=== PATIENT | male | born 1965 | race Caucasian/White ===

== ENCOUNTER → 2022-04-17 10:36 | Outpatient (BNVA) | payer MEDICAID, SELFPAY | PROVIDERS: Family Provider Family Medicine; PCP Family Medicine; Visit Provider Orthopaedic Surgery | DX: K21.9 Gastro-esophageal reflux disease without esophagitis; R10.13 Epigastric pain; K62.5 Hemorrhage of anus and rectum; K59.00 Constipation, unspecified; R13.10 Dysphagia, unspecified; Z86.010 Personal history of colon polyps; M47.12 Other spondylosis with myelopathy, cervical region | CPT/HCPCS: 72050; 72110; 99203; 99204 ==

== ENCOUNTER 2022-05-01 09:04 | Day surgery (SDC) | payer MEDICAID, SELFPAY ==
[2022-04-29 12:56] VITALS: BMI 27.4
[2022-05-01 09:42] VITALS: BP 124/89; PULSE 103; RESP 16; TEMP 36.7; O2SAT 95
[2022-05-01] MEDS: sodium chloride 0.9% 1,000 ML 30 ML IV (09:55)
[2022-05-01 10:22] LABS: Glucose Point of Care 98 mg/dL (70-110)
--- NOTE | 2022-05-01 10:30 | ANES.PREANE2 ---
Pre-Anesthetic Assessment Height/Weight: Height 1.68 m Weight 77.111 kg Temp Pulse Resp BP Pulse Ox O2 Del Method 98.0 F 103 H 16 124/89 95 05/01/22 09:42 05/01/22 09:42 05/01/22 09:42 05/01/22 09:42 05/01/22 09:42 05/01/22 09:42 Preop Diagnosis: reflux, conctipation, abd pain Operation Date: 05/01/22 10:45 Proposed Procedures p [id number] egd/colon,K95.00,R10.9,K21.9(Not Applicable) - Olvin Duvall DO s Colonoscopy(Not Applicable) - Olvin Duvall DO Was Beta Kenyon taken within 24 hours: N/A Last intake: Intake Last Liquid Date 04/30/22 Last Liquid Time 22:00 Last Solid Date 04/29/22 Last Solid Time 17:00 Social Alcohol and No tobacco Exam alert, oriented x 3, clear to auscultation bilaterally and regular rate & rhythm Airway Submandibular: within normal limits Cervical ROM: within normal limits Mallampati: Class II Dentition: full History/ROS No significant history except as noted and No significant complaints Pulmonary Chronic Obstructive Pulmonary Disease, Sleep Apnea and Shortness of Breath CV/HEM Hypertension None reported Hepatic None reported GI Gastroesophageal Reflux Disease Metabolic Diabetes Mellitus Musc/skel Lower Back Pain and Osteoarthritis/DJD Neuropsych Transient Ischemic Attack Anesthetic Plan ASA status: 4 Anesthesia: Anesthesia Evaluation and MAC Risk of > 500 ml blood loss (7ml/kg in children): No Medications/Allergies Home Medications Medication Instructions Recorded Confirmed Last Taken Type albuterol sulfate 90 mcg/actuation 1 inh inhalation QID 04/17/22 04/29/22 04/30/22 History aerosol inhaler amlodipine 10 mg tablet 10 mg PO DAILY 04/17/22 04/29/22 04/30/22 History aspirin 81 mg tablet,delayed 81 mg PO DAILY 04/17/22 04/29/22 04/29/22 History release atorvastatin 40 mg tablet 40 mg PO DAILY 04/17/22 04/29/22 04/30/22 History azelastine 137 mcg (0.1 %) nasal 1 spray intranasal BID 04/17/22 04/29/22 04/30/22 History spray aerosol budesonide 160 mcg-glycopyr 9 2 inh inhalation BID 04/17/22 04/29/22 04/30/22 History mcg-formot 4.8 mcg/actuation HFA inhaler (Breztri Aerosphere) calcium citrate 200 mg (950 mg) 200 mg PO DAILY 04/17/22 04/29/22 04/30/22 History tablet carvedilol 3.125 mg tablet 3.125 mg PO BID 04/17/22 04/29/22 04/30/22 History clopidogrel 75 mg tablet 75 mg PO DAILY 04/17/22 04/29/22 04/26/22 History ergocalciferol (vitamin D2) 1,250 1,250 mcg PO DAILY 04/17/22 04/29/22 04/30/22 History mcg (50,000 unit) capsule esomeprazole magnesium 40 mg 40 mg PO DAILY 04/17/22 04/29/22 04/30/22 History capsule,delayed release fluticasone propionate 250 1 inh inhalation BID 04/17/22 04/29/22 04/30/22 History mcg/actuation blister powder for inhalation (Flovent Diskus) furosemide 20 mg tablet 20 mg PO DAILY 04/17/22 04/29/22 04/30/22 History glycopyrrolate 1 mg tablet 1 mg PO TID 04/17/22 04/29/22 04/30/22 History hydrocodone 10 mg-acetaminophen 1 tab PO Q4H PRN Pain 04/17/22 04/29/22 04/30/22 History 325 mg tablet insulin aspart U-100 100 unit/mL 5 unit SUBCUT QID 04/17/22 04/29/22 04/30/22 History subcutaneous cartridge lactulose 10 gram/15 mL (15 mL) 15 ml PO TID PRN constipation 1 04/17/22 04/29/22 Unknown Rx oral solution month #315 mL naloxone 4 mg/actuation nasal 4 mg intranasal Q2M PRN overdose 04/17/22 04/29/22 Unknown History spray (Narcan) ondansetron HCl 4 mg tablet 4 mg PO Q8H 04/17/22 04/29/22 04/30/22 History pen needle, diabetic 31 gauge x 04/17/22 04/17/22 Unknown History 3/16 (TechLITE Pen Needle) polyethylene glycol 3350 17 4 g PO DAILY 02/11/2904/29/22 04/30/22 History gram/dose oral powder potassium chloride 10 mEq 10 meq PO DAILY 04/17/22 04/29/22 04/30/22 History capsule,extended release testosterone cypionate 200 mg/mL 80 mg SUBCUT Q14D 04/17/22 04/29/22 04/22/22 History intramuscular oil zolpidem 10 mg tablet 10 mg PO DAILY 04/17/22 04/29/22 04/30/22 History prednisone 5 mg tablet 5 mg PO DAILY 04/29/22 04/29/22 04/30/22 History Allergies Allergy/AdvReac Type Severity Reaction Status Date / Time brexpiprazole Allergy Severe ADR-Halluci Verified 04/29/22 12:48 nating doxycycline Allergy Severe ALGY-Difficulty Verified 04/29/22 12:48 Breathing Iodinated Contrast Media Allergy Severe ALGY-Wheezi Verified 04/29/22 12:48 ng Sulfa (Sulfonamide Allergy Severe ALGY-Difficulty Verified 04/29/22 12:48 Antibiotics) Breathing varenicline Allergy Severe ADR-Halluci Verified 04/29/22 12:48 nating hydralazine Allergy Intermediate ADR-Photose Verified 04/29/22 12:48 nsitivity adhesive tape Allergy Mild ALGY-Rash Uncoded 04/29/22 12:48 Current Medications Generic Name Dose Route Start Last Admin Trade Name Freq PRN Reason Stop Dose Admin Sodium Chloride 1,000 mls @ 30 mls/hr 05/01/22 09:15 05/01/22 09:55 Sodium Chloride 0.9% IV 05/02/22 09:14 30 mls/hr .Q24H ROSE Administration PFSH Anesthesia Medical History (Updated 04/17/22 @ 13:35 by Olvin Duvall DO) Constipation Diabetic acidosis, type II GERD (gastroesophageal reflux disease) Surgical History Hx of colonoscopy with polypectomy total of 3. Last done 12/2018 at [facility] Hx of hernia repair x2 Inguinal Hx of knee surgery Right side and possibly left side Hx of kyphoplasty Family History Father Cancer Esephageal cancer Mother Cancer Sister Cancer kidney cancer Social History Smoking and tobacco status: former smoker Alcohol intake: current Alcohol intake frequency: holidays/special occasions only Data Anesthesia Cardiac Studies: No Data to Display
--- NOTE | 2022-05-01 10:56 | W.PM.OPSUD ---
Surgery/Procedure H&P Update DATE OF PROCEDURE: May 01, 2022 DATE H&P PERFORMED: 04/17/22 H&P UPDATE INFORMATION: I have reviewed H&P completed within last 30 days, I have examined patient prior to procedure and No changes to prior documentation PREOP DIAGNOSIS: reflux, conctipation, abd pain PLANNED PROCEDURE: Operation Date: 05/01/22 10:45 Proposed Procedures p [id number] egd/colon,K95.00,R10.9,K21.9(Not Applicable) - DO violet Quinn Colonoscopy(Not Applicable) - Olvin Duvall DO
[2022-05-01 11:29] VITALS: BP 117/87; PULSE 87; RESP 16; TEMP 36.1; O2SAT 97
--- NOTE | 2022-05-01 13:29 | ANE.PACU2 ---
Inpatient post-anesthesia follow up: Airway intact: Yes Vital signs: Temperature 97.0 F Pulse Rate 87 Respiratory Rate 16 Blood Pressure 117/87 Pulse Oximetry 97 Oxygen Delivery Me thod Room Air Oxygen Flow Rate Fraction of Inspir ed Oxygen Hydration adequate: Yes Nausea and vomiting: No Pain level: 1 Mental status: Baseline
== END 2022-05-01 12:00 | disposition home or self-care (01) ==
PROVIDERS: PCP Family Medicine; Visit Provider Surgery
PROC: 0DJ08ZZ Inspection of Upper Intestinal Tract, Via Natural or Artificial Opening Endoscopic (ICD-10-PCS; CPT 43235; principal; 2022-05-01 10:45)
PROC: 0DJD8ZZ Inspection of Lower Intestinal Tract, Via Natural or Artificial Opening Endoscopic (ICD-10-PCS; CPT 45378; 2022-05-01 10:45)
DX: K59.00 Constipation, unspecified (principal); R10.9 Unspecified abdominal pain; K21.9 Gastro-esophageal reflux disease without esophagitis; K52.9 Noninfective gastroenteritis and colitis, unspecified; K57.30 Diverticulosis of large intestine without perforation or abscess without bleeding; J44.9 Chronic obstructive pulmonary disease, unspecified; G47.30 Sleep apnea, unspecified; I10 Essential (primary) hypertension; E11.9 Type 2 diabetes mellitus without complications; Z86.73 Personal history of transient ischemic attack (TIA), and cerebral infarction without residual deficits; Z79.82 Long term (current) use of aspirin; Z79.4 Long term (current) use of insulin; Z87.891 Personal history of nicotine dependence
CPT/HCPCS: 36416; 43235; 45380; 82962; 88305; J2704; J7030

== ENCOUNTER 2022-05-12 13:11 | Outpatient (CLI) | payer MEDICAID, SELFPAY ==
--- NOTE | 2022-05-12 13:00 | MR_ITS ---
WS: [id number] MRI LUMBAR SPINE NONCONTRAST HISTORY: low back pain, hx of compression fractures COMPARISON: 04/17/2022. TECHNIQUE: Sagittal and axial multisequence imaging is submitted. Straightening of the normal lumbar lordosis. Anterior compression fracture L1 by 20% is chronic. L2 v ertebroplasty. No acute marrow signal abnormalities. Disc spaces are mildly and diffusely desiccated. Conus terminates normally at L1-2 disc level. L1-L2: Mild annular disc bulging. No stenosis or focal disc herniations. L2-L3: Normal. L3-L4: Mild bilateral facet joint arthritis. Very mild bilateral foraminal narrowing. L4-L5: Mild annular disc bulging with a small central to RIGHT paracentral disc protrusion. Disc prot rusion is contacting and slightly displacing the traversing RIGHT L5 nerve root. Mild bilateral facet joint arthritis and foraminal stenosis. L5-S1: Mild annular disc bulge with a central disc protrusion. Disc bulging extends into the foramina with LEFT annular fissure. Mild facet joint arthritis and ligamentum flavum hypertrophy. Moderate bi lateral foraminal stenosis, LEFT greater than RIGHT. Disc contacting the L5 nerve roots bilaterally. Paravertebral soft tissues are normal. MR/MR lumbar spine wo con* [id number] IMPRESSION: 1. Moderate bilateral foraminal stenosis at L5-S1. Most significant contact on the L5 nerve roots bilaterally. 2. L4-5 central to RIGHT paracentral disc protrusion contacts the traversing R IGHT L5 nerve root. 3. Mild bilateral foraminal stenosis at L4-5 and L3-4.
--- NOTE | 2022-05-12 14:30 | MR_ITS ---
WS: [id number] MRI CERVICAL SPINE NONCONTRAST HISTORY: neck pain, dizziness, balance issues, hx of compression fx COMPARISON: None available. Technique: Multiplanar, multisequence noncontrast imaging of the cervical spine. Straightening with RIGHT curvature of the cervical spine. Signal within the cervical cord is normal. Visualized posterior fossa is unremarkable. Disc spaces ar e markedly narrowed at C4-5 and C5-6. Otherwise mild degeneration. Craniocervical junction, C1 and C2 relationship, odontoid process and soft tissues are normal. C2-C3: Small central disc protrusion and mild osteophytic ridging. Mild LEFT foraminal stenosis. C3-C4: Diffuse annular disc bulging with osteophytic ridging and facet arthritis. Greater facet joint arthritis on the LEFT. Moderate central and bilateral foraminal stenosis. LEFT stenosis greater than RIGHT. C4-C5: 2 mm retrolisthesis of C4 encroaching upon the ventral thecal sac. Mild osteophytic ridging. N o disc protrusions. Moderate central and bilateral foraminal stenosis. C5-C6: Diffuse annular disc bulging and osteophytic ridging. Moderate to severe central and bilateral foraminal stenosis. Increase fluid within the LEFT facet joint. Facet joint cyst in the LEFT C6 supe rior articular facet. C6-C7: Mild osteophytic ridging with a central disc protrusion. Moderate facet joint arthritis. Moder ate central with bilateral foraminal stenosis. C7-T1: Mild foraminal narrowing due to osteophyte disease. T2-3: Small RIGHT paracentral disc protrusion. Paraspinal soft tissue are normal. MR/MR cervical spin wo con* [id number] IMPRESSION: 1. Moderate RIGHT scoliosis cervical spine with advanced degenerative disc dis ease. 2. Moderate central and bilateral foraminal stenosis at C3-4, LEFT greater barak n RIGHT due to disc, osteophyte and facet arthritis. 3. Moderate central and bilateral foraminal stenosis at C4-5 and C6-7. 4. Moderate to severe central stenosis at C5-6 and bilateral foraminal stenosi s. 5. No myelomalacia.
== END 2022-05-12 13:12 | disposition home or self-care (01) ==
LOC: RAD 13:11
PROVIDERS: PCP Family Medicine; Visit Provider Orthopaedic Surgery
DX: M50.321 Other cervical disc degeneration at C4-C5 level (principal); M48.02 Spinal stenosis, cervical region; M48.061 Spinal stenosis, lumbar region without neurogenic claudication; M48.07 Spinal stenosis, lumbosacral region
CPT/HCPCS: 72141; 72148

== ENCOUNTER → 2022-05-15 10:49 | Outpatient (BNVA) | payer MEDICAID, SELFPAY | PROVIDERS: PCP Family Medicine; Visit Provider Orthopaedic Surgery | DX: M47.12 Other spondylosis with myelopathy, cervical region (principal); M48.061 Spinal stenosis, lumbar region without neurogenic claudication | CPT/HCPCS: 99214 ==

== ENCOUNTER → 2022-05-21 16:48 | Outpatient (BNVA) | payer MEDICAID, SELFPAY | PROVIDERS: PCP Family Medicine; Visit Provider Surgery | DX: R10.9 Unspecified abdominal pain (principal); K62.5 Hemorrhage of anus and rectum | CPT/HCPCS: 99024; 99212 ==

== ENCOUNTER 2022-06-09 10:37 | Inpatient (IN) | payer MEDICAID, SELFPAY ==
[2022-06-02 08:36] VITALS: BMI 27.4
[2022-06-02 09:19] LABS: Basophils # 0.1 10^3/uL (0.0-0.1); Basophils % 0.5 %; Eosinophils # 0.2 10^3/uL (0.0-0.8); Eosinophils % 0.8 %; Hematocrit 44.4 % (42.0-52.0); Hemoglobin 12.4 g/dL (11.7-16.6); Lymphocytes # 4.9 10^3/uL (0.8-4.8); Lymphocytes % 19.3 %; Mean Corpuscular HGB Conc 27.9 g/dL (30.0-36.0); Mean Corpuscular Hemoglobin 20.9 pg (28.0-34.0); Mean Corpuscular Volume 74.9 fl (80-94); Monocytes # 1.5 10^3/uL (0.2-0.9); Neutrophils # 18.35 10^3/uL (1.8-7.7); Neutrophils % 72.3 %; Nucleated Red Blood Cells % 0 %; Platelet Count 478 10^3/cmm (130-400); Red Blood Count 5.93 10^6/uL (4.1-5.3); White Blood Count 25.4 10^3/uL (4.0-10.0)
--- NOTE | 2022-06-02 09:31 | P.ANESASSM_ITS ---
Pre-Anesthetic Assessment Height/Weight: Height 1.68 m Weight 77.111 kg Preop Diagnosis: reflux, conctipation, abd pain Operation Date: 06/09/22 07:00 Proposed Procedures p Anterior Cervical Discectomy & Fusion ACDF w/ Anterior Interbody Fusion w/ Instrumentation w/ Allograft:[id number](Not Applicable) - Romel Joseph DO Familial anesthetic complications: Patient has very thin skin and has trouble with skin tears and tape use. Was Beta Kenyon taken within 24 hours: N/A Was Clonidine taken within 24 hours: N/A Social No alcohol and No tobacco (h/o smoking) Exam alert, oriented x 3 and regular rate & rhythm Airway Submandibular: within normal limits Cervical ROM: Other (Very limited extension) Mallampati: Class III Dentition: chipped Pulmonary Chronic Obstructive Pulmonary Disease and Shortness of Breath Restricitve/autoimmune lung dz CV/HEM Hypertension GI Gastroesophageal Reflux Disease Metabolic Diabetes Mellitus and Hyperlipidemia Chronic steroid (asked to take 30mg PO preop) Musc/skel Lower Back Pain and Osteoarthritis/DJD Anesthetic Plan ASA status: 3 Anesthesia: General Other: Discussed A.line Medications/Allergies Home Medications Medication Instructions Recorded Confirmed Last Taken Type albuterol sulfate 90 mcg/actuation 1 inh inhalation QID 04/17/22 06/02/22 04/30/22 History aerosol inhaler amlodipine 10 mg tablet 10 mg PO DAILY 04/17/22 06/02/22 04/30/22 History aspirin 81 mg tablet,delayed 81 mg PO DAILY 04/17/22 06/02/22 06/01/22 History release atorvastatin 40 mg tablet 40 mg PO DAILY 04/17/22 06/02/22 04/30/22 History azelastine 137 mcg (0.1 %) nasal 1 spray intranasal BID 04/17/22 06/02/22 04/30/22 History spray aerosol budesonide 160 mcg-glycopyr 9 2 inh inhalation BID 04/17/22 06/02/22 04/30/22 History mcg-formot 4.8 mcg/actuation HFA inhaler (Breztri Aerosphere) calcium citrate 200 mg (950 mg) 200 mg PO DAILY 04/17/22 06/02/22 04/30/22 History tablet carvedilol 3.125 mg tablet 3.125 mg PO BID 04/17/22 06/02/22 04/30/22 History clopidogrel 75 mg tablet 75 mg PO DAILY 04/17/22 06/02/22 05/26/22 History ergocalciferol (vitamin D2) 1,250 1,250 mcg PO DAILY 04/17/22 06/02/22 04/30/22 History mcg (50,000 unit) capsule esomeprazole magnesium 40 mg 40 mg PO DAILY 04/17/22 06/02/22 04/30/22 History capsule,delayed release fluticasone propionate 250 1 inh inhalation BID 04/17/22 06/02/22 04/30/22 History mcg/actuation blister powder for inhalation (Flovent Diskus) furosemide 20 mg tablet 20 mg PO DAILY 04/17/22 06/02/22 04/30/22 History glycopyrrolate 1 mg tablet 1 mg PO TID 04/17/22 06/02/22 04/30/22 History hydrocodone 10 mg-acetaminophen 1 tab PO Q4H PRN Pain 04/17/22 06/02/22 04/30/22 History 325 mg tablet insulin aspart U-100 100 unit/mL 5 unit SUBCUT QID 04/17/22 06/02/22 04/30/22 History subcutaneous cartridge (Novolog PenFill U-100 Insulin aspart) lactulose 10 gram/15 mL (15 mL) 15 ml PO TID PRN constipation 1 04/17/22 0 06/02/22 Unknown Rx oral solution month #315 mL naloxone 4 mg/actuation nasal 4 mg intranasal Q2M PRN overdose 04/17/22 06/02/22 Unknown History spray (Narcan) ondansetron HCl 4 mg tablet 4 mg PO Q8H PRN Nausea 04/17/22 06/02/22 04/30/22 History pen needle, diabetic 31 gauge x 04/17/22 05/21/22 Unknown History 05/22 (TechLITE Pen Needle) polyethylene glycol 3350 17 4 g PO DAILY PRN Constipation 04/17/22 06/02/22 04/30/22 History gram/dose oral powder potassium chloride 10 mEq 10 meq PO DAILY 04/17/22 06/02/22 04/30/22 History capsule,extended release testosterone cypionate 200 mg/mL 80 mg SUBCUT Q14D 04/17/22 06/02/2223 History intramuscular oil zolpidem 10 mg tablet 10 mg PO DAILY PRN Insomnia 04/17/22 06/02/22 04/30/22 History prednisone 5 mg tablet 5 mg PO DAILY 04/29/22 06/02/22 04/30/22 History intraoperative neuromonitoring #1 ea 05/28/22 Unknown Rx Lantus Solostar U-100 Insulin 16 units INJECTION BEDTIME 06/02/22 06/02/22 Unknown History hydrocortisone 2.5 % topical cream 1 applic NE QID PRN Itching 06/02/22 06/02/22 Unknown History with perineal applicator (Anusol-HC) Allergies Allergy/AdvReac Type Severity Reaction Status Date / Time brexpiprazole Allergy Severe ADR-Halluci Verified 06/02/22 08:29 nating doxycycline Allergy Severe ALGY-Difficulty Verified 06/02/22 08:29 Breathing Iodinated Contrast Media Allergy Severe ALGY-Wheezi Verified 06/02/22 08:29 ng Sulfa (Sulfonamide Allergy Severe ALGY-Difficulty Verified 06/02/22 08:29 Antibiotics) Breathing varenicline Allergy Severe ADR-Halluci Verified 06/02/22 08:29 nating hydralazine Allergy Intermediate ADR-Photose Verified 06/02/22 08:29 nsitivity adhesive tape Allergy Mild ALGY-Rash Uncoded 06/02/22 08:29 [facility] Anesthesia Medical History Constipation Diabetic acidosis, type II GERD (gastroesophageal reflux disease) Surgical History Hx of colonoscopy with polypectomy total of 3. Last done 12/2018 at [facility] Hx of hernia repair x2 Inguinal Hx of knee surgery Right side and possibly left side Hx of kyphoplasty Family History Father Cancer Esephageal cancer Mother Cancer Sister Cancer kidney cancer Social History Smoking and tobacco status: former smoker Alcohol intake: current Alcohol intake frequency: holidays/special occasions only Data Anesthesia 06/02/22 08:44 06/02/22 08:44 Short CBC 06/02/22 Range/Units 08:44 WBC 25.4 H (4.0-10.0) 10^3/uL Hgb 12.4 (11.7-16.6) g/dL Hct 44.4 (42.0-52.0) % MCV 74.9 L (80-94) fl Plt Count 478 H (130-400) 10^3/cmm Neut % (Auto) 72.3 % Neut # (Auto) 18.35 H (1.8-7.7) 10^3/uL Cardiac Studies: No Data to Display
[2022-06-02 09:37] LABS: Anion Gap 21.7 (5-19); Blood Urea Nitrogen 7 mg/dL (6-20); Calcium 9.6 mg/dL (8.5-10.5); Carbon Dioxide 24 mmol/L (22-29); Chloride 99 mmol/L (98-107); Glomerular Filtration Rate 86.7 mL/min (90-130); Glucose 149 mg/dL (65-115); Osmolality Calculated 293 mOsm/kg (285-295); Potassium 3.7 mmol/L (3.5-5.1); Sodium 141 mmol/L (136-145)
[2022-06-09] VITALS (15 sets, daily range): BP systolic 121–167; BP diastolic 66–96; PULSE 72–112; RESP 16–18; TEMP 36.2–36.8; O2SAT 93–99
[2022-06-09] MEDS: sodium chloride 0.9% 1,000 ML 30 ML IV (06:20)
--- NOTE | 2022-06-09 06:36 | P.HPUD_ITS ---
Surgery/Procedure H&P Update DATE OF PROCEDURE: June 09, 2022 DATE H&P PERFORMED: 05/15/22 H&P UPDATE INFORMATION: I have reviewed H&P completed within last 30 days, I have examined patient prior to procedure and No changes to prior documentation PREOP DIAGNOSIS: Cervical spondylosis with myelopathy PLANNED PROCEDURE: Operation Date: 06/09/22 07:00 Proposed Procedures p Anterior Cervical Discectomy & Fusion ACDF w/ Anterior Interbody Fusion w/ Instrumentation w/ Allograft C3-4,C4-5,C5-6, C6- 7:[id number](Not Applicable) - Romel Joseph,
--- NOTE | 2022-06-09 06:40 | P.ANESUD_ITS ---
Pre-Anesthetic Update Pre-Anesthetic Assessment: Date of Surgery/Procedure: 06/09/22 Preop Yamel gnosis: Cervical spondylosis with myelopathy Proposed Procedure: Operation Date: 06/09/22 07:00 Proposed Procedures p Anterior Cervical Discectomy & Fusion ACDF w/ Anterior Interbody Fusion w/ Instrumentation w/ Allograft C3-4,C4-5,C5-6, C6- 7:[id number](Not Applicable) - Romel Joseph, DO Any changes to Pre-Anesthetic Assessment?: Yes Changes from Pre-Anesthetic Assessment: States he ran out of his prednisone 5 mg tabs and has been taking 20 mg, but did not take it this morning. Will supplement w/ stress dose steroids Last Intake: Intake Last Liquid Date 06/08/22 Last Liquid Time 22:00 Last Solid Date 06/08/22 Last Solid Time 22:00 Vitals: Temperature 97.2 F L 06/09/22 06:12 Temperature Source Temporal Artery S can 06/09/22 06:12 Pulse Rate 92 06/09/22 06:12 Respiratory Rate 16 06/09/22 06:12 Blood Pressure 133/66 06/09/22 06:12 Blood Pressure María n 88 06/09/22 06:12 Pulse Oximetry 98 06/09/22 06:12 Oxygen Delivery Me thod 06/09/22 06:12 Exam: Pre-Anes Outpt Exam: alert, oriented x 3, clear to auscultation bilaterally and regular rate & rhythm Cardiac Studies: No Data to Display
[2022-06-09] MEDS: ceFAZolin 2,000 MG in sodium chloride 0.9% (plus) 50 ML 100 MG IV ×3 (07:03→23:27)
[2022-06-09] MEDS: lidocaine-epi 2% 20 mL INJ INJECTION (07:38)
[2022-06-09 09:18] LABS: Glucose Point of Care 192 mg/dL (70-110)
--- NOTE | 2022-06-09 09:34 | XR_ITS ---
WS: [id number] XR cervical spine [place] [id number] REASON FOR EXAM: or pics FINDINGS: Anterior plate and screw fixation with interbody fusion devices C3-C7. Surgical appliances are in proper position and alignment. XR/XR cervical spine 1[place]port [id number] IMPRESSION: Anterior cervical fusion as above.
--- NOTE | 2022-06-09 09:57 | P.OP_ITS ---
Operative Report Date of procedure: June 09, 2022 Pre-op diagnosis: Preop Diagnosis Cervical spondylosis with myelopathy Post-op diagnosis: same Procedure done: 1. Anterior diskectomy C3/4 2. Anterior diskectomy C4/5 3. Anterior diskectomy C5/6 4. Anterior discectomy C6/7 5. Insertion of cage C3/4 6. Insertion of cage C4/5 7. Insertion of cage C5/6 8. Insertion of Cage C6/7 9. Instrumentation with anterior plate from C3-C7 10. Use of allograft Surgeon: Romel Joseph Carbon Furnace Operator: Chris Patrick Carbon Furnace Operator: The surgical corsetier, Chris Patrick, PAC was needed for his expertise under the microscope. He was important and necessary throughout the procedure to complete in a safe and timely manner. He assisted with patient positioning prepping and draping tissue retraction suctioning of the operative field protection of the dural sac and tissue closure Estimated blood loss (mL): 20 Procedure: 1. Anterior diskectomy C3/4 2. Anterior diskectomy C4/5 3. Anterior diskectomy C5/6 4. Anterior discectomy C6/7 5. Insertion of cage C3/4 6. Insertion of cage C4/5 7. Insertion of cage C5/6 8. Insertion of Cage C6/7 9. Instrumentation with anterior plate from C3-C7 10. Use of allograft The patient was taken to the operating room, where he underwent general endotracheal anesthesia without complications. He was then positioned supine on the operating table, and all areas of impingement were well padded. The arms were carefully padded and tucked at his sides. A roll was placed between the shoulder blades.. An x-ray was done to determine the appropriate level for the skin incision. The entire neck was then sterilely prepped and draped in the usual fashion. Neuromonitoring was attached prior to prepping. A transverse skin incision was made and carried down to the platysma muscle. This was then split in line with its fibers. Blunt dissection was carried down medial to the carotid sheath and lateral to the trachea and esophagus until the anterior cervical spine was visualized. A needle was placed into a disc and an x-ray was done to determine its location. The longus colli muscles were then elevated bilaterally with the electrocautery unit. Self-retaining retractors were placed deep to the longus colli muscle. Attention was brought to the C6/7 level that was confirmed on x-ray. A caspar pin was placed into the C6 vertebrae and the C7 vertebrae. The disk space was then distracted. The microscope was then brought in. A radical anterior discectomies were performed at C6/7. This included complete removal of the anterior annulus, nucleus, and posterior annulus. The posterior longitudinal ligament was removed as were the posterior osteophytes. Foraminotomies were then accomplished bilaterally. This was done using a high speed kassandra, kerrison rongeurs and curretes Once all of this was accomplished, the curved currette was used to check for any residual compression. The central canal was wide open as were the foramen. A high-speed bur was used to remove the cartilaginous endplates above and below the interspace. Bleeding cancellous bone was exposed. The disc space were measured and appropriate size cage were placed sterilely onto the field. Allograft graft was packed into the cages. The cage was then placed and there was good juxtaposition against the bleeding decorticated surfaces and good distraction of each interspace. Attention was brought to the next interspace. The [place] pins were removed. Bone wax was used to prevent any bleeding from occurring at the pin sites. Attention was brought to the C3/4 level that was confirmed on x-ray. A caspar pin was placed into the C3 vertebrae and the C4 vertebrae. The disk space was then distracted. The microscope was then brought in. A radical anterior discectomies were performed at C3/4. This included complete removal of the anterior annulus, nucleus, and posterior annulus. The posterior longitudinal ligament was removed as were the posterior osteophytes. Foraminotomies were then accomplished bilaterally. This was done using a high speed kassandra, kerrison rongeurs and curretes Once all of this was accomplished, the curved currette was used to check for any residual compression. The central canal was wide open as were the foramen. A high-speed bur was used to remove the cartilaginous endplates above and below the interspace. Bleeding cancellous bone was exposed. The disc space were measured and appropriate size cage were placed sterilely onto the field. Allograft graft was packed into the cages. The cage was then placed and there was good juxtaposition against the bleeding decorticated surfaces and good distraction of each interspace. Attention was brought to the next interspace. The [place] pins were removed. Bone wax was used to prevent any bleeding from occurring at the pin sites. Attention was brought to the C4/5 level that was confirmed on x-ray. A caspar pin was placed into the C4 vertebrae and the C5 vertebrae. The disk space was then distracted. The microscope was then brought in. A radical anterior discectomies were performed at C4/5. This included complete removal of the anterior annulus, nucleus, and posterior annulus. The posterior longitudinal ligament was removed as were the posterior osteophytes. Foraminotomies were then accomplished bilaterally. This was done using a high speed kassandra, kerrison rongeurs and curretes Once all of this was accomplished, the curved currette was used to check for any residual compression. The central canal was wide open as were the foramen. A high-speed bur was used to remove the cartilaginous endplates above and below the interspace. Bleeding cancellous bone was exposed. The disc space were measured and appropriate size cage were placed sterilely onto the field. Allograft graft was packed into the cages. The cage was then placed and there was good juxtaposition against the bleeding decorticated surfaces and good distraction of each interspace. Attention was brought to the next interspace. The [place] pins were removed. Bone wax was used to prevent any bleeding from occurring at the pin sites. Attention was brought to the C5/6 level that was confirmed on x-ray. A caspar pin was placed into the C5 vertebrae and the C6 vertebrae. The disk space was then distracted. The microscope was then brought in. A radical anterior disce ctomies were performed at C5/6. This included complete removal of the anterior annulus, nucleus, and posterior annulus. The posterior longitudinal ligament was removed as were the posterior osteophytes. Foraminotomies were then accomplished bilaterally. This was done using a high speed kassandra, kerrison rongeurs and curretes Once all of this was accomplished, the curved currette was used to check for any residual compression. The central canal was wide open as were the foramen. A high-speed bur was used to remove the cartilaginous endplates above and below the interspace. Bleeding cancellous bone was exposed. The disc space were measured and appropriate size cage were placed sterilely onto the field. Allograft graft was packed into the cages. The cage was then placed and there was good juxtaposition against the bleeding decorticated surfaces and good distraction of each interspace. Attention was brought to the next interspace. The [place] pins were removed. Bone wax was used to prevent any bleeding from occurring at the pin sites. The appropriate size anterior cervical locking plate was chosen and bent into gentle lordosis. Two screws were then placed into each of the vertebral bodies at C3, C4, C5, C6 and C7. There was excellent purchase. A final x-ray was done confirming good position of the hardware and Cages. The locking screws were then applied, also with excellent purchase. Following a final copious irrigation, there was good hemostasis and no dural leaks. The carotid pulse was strong. The wounds were then closed in layers using 2-0 Vicryl suture for the platysma muscle, 2-0 Vicryl suture for the subcutaneous tissue, and 4-0 monocryl suture in a subcuticular skin closure. Glue was placed followed by application of a sterile dressing. The drain was hooked to bulb suction. A soft collar was applied. The patient was then carefully returned to the supine position on his hospital bed where he was reversed and extubated and taken to the recovery room having tolerated the procedure well.
[2022-06-09] MEDS: lactated ringers 1,000 ML 90 ML IV ×2 (11:05→22:13)
[2022-06-09] MEDS: dexamethasone 10 mg/mL INJ IVP (11:47)
[2022-06-09] MEDS: HYDROcodone-acetaminophen 10-325 mg Tablet 1 TAB PO ×3 (11:50→21:52)
--- NOTE | 2022-06-09 12:54 | PC.NURSE ---
Pt Drain: Pt's called nurse into room. When nurse arrived at room stated, I was sitting him up and his drain just slid out. Site inspected and no active s/s of bleeding. Voicemail left for Dr. Joseph.
--- NOTE | 2022-06-09 13:12 | ANE.PACU2 ---
Inpatient post-anesthesia follow up: Airway intact: Yes Vital signs: Temperature 97.5 F Pulse Rate 88 Respiratory Rate 18 Blood Pressure 160/95 Pulse Oximetry 94 Oxygen Delivery Me thod Room Air Oxygen Flow Rate 3 Fraction of Inspir ed Oxygen Hydration adequate: Yes Nausea and vomiting: No Pain level: 1 Mental status: Baseline
[2022-06-09 13:39] LABS: Glucose Point of Care 384 mg/dL (70-110)
[2022-06-09] MEDS: insulin lispro 100 unit/1 mL SUBCUT ×3 (14:43→21:16)
[2022-06-09] MEDS: ipratropium-albuterol 3 mL Neb INHALATION (15:08)
--- NOTE | 2022-06-09 15:29 | PC.NURSE ---
Addendum entered by Myra Centeno LPN 06/09/22 15:49: Nurse was notified that pt was outside in front of the building smoking a cigarette. When talking to this pt prior, pt was educated that he could not leave the floor but was able to walk around the unit. When pt was approached by this nurse and asked to come back inside pt stated, Nope. I have been a smoker my whole life and I will come back in when I a done with this cigarette. Pt brought back to floor safely. When asked if pt has cigarettes and radiographer with him he responded with, Yes, and you're not taking them. Charge nurse notified. Original Note: Pt Behavior:
--- NOTE | 2022-06-09 16:13 | PC.NURSE ---
Joanna took patient's vitals at 1610. Upon finishing vitals, Joanna asked patient if he needed anything while in the room. Patient stated nope, im good. Joanna stated, okay, just let me know if you need anything.
[2022-06-09] MEDS: carvedilol 3.125 mg Tablet PO (18:27)
[2022-06-09] MEDS: docusate sodium 100 mg Capsule PO (18:27)
[2022-06-09 18:33] LABS: Glucose Point of Care 365 mg/dL (70-110)
[2022-06-09 21:14] LABS: Glucose Point of Care 379 mg/dL (70-110)
[2022-06-09] MEDS: insulin glargine 100 units/1 mL 16 UNIT SUBCUT (21:18)
[2022-06-10] MEDS: HYDROcodone-acetaminophen 10-325 mg Tablet 1 TAB PO ×2 (02:01→06:21)
[2022-06-10 03:58] VITALS: BP 130/81; PULSE 86; RESP 17; TEMP 36.9; O2SAT 98
[2022-06-10] MEDS: ceFAZolin 2,000 MG in sodium chloride 0.9% (plus) 50 ML 100 MG IV (06:18)
--- NOTE | 2022-06-10 06:56 | PM.PN ---
Subjective Subjective: POD 1 Patient resting comfortably. Reports improvement of arm pain denies any swallowing difficulties, voice changes or headaches. Vitals/I&O/Wt Last Vital Signs Temp 98.4 F 06/10/22 03:58 Pulse 86 06/10/22 03:58 Resp 17 06/10/22 03:58 BP 130/81 06/10/22 03:58 Pulse Ox 98 06/10/22 03:58 O2 Del Method 06/09/22 16:00 O2 Flow Rate 3 06/09/22 10:27 06/09/22 06/09/22 06/10/22 14:59 22:59 06:59 Intake Total 550 / 550 1290 / 1840 50 / 1890 Output Total 200 / 200 Balance 350 / 350 1290 / 1640 50 / 1690 Physical Exam Narrative: Patient is alert and oriented x3 with a good general appearance normal mood and affect. Mildly tender with palpation about the incisional site. Incision appears to be clean and dry without signs of erythema or drainage. No signs of infection. Good motor strength throughout both upper extremities. Appears to fire in all motor groups with 5/5 strength. Hands are warm good cap refill in all digits. Normal sensation to light touch in all dermatomal areas. Urinary Catheter Management: Barraza: Cath Placed During This Visit: yes Urinary Catheter Date of Insertion: 06/09/22 Urinary Catheter Time of Insertion: 07:15 Data 06/02/22 08:44 06/02/22 08:44 A&P Assessment and plan (1) Status post cervical spinal fusion: Continue incentive spirometry for pulmonary toilet. Discharge home later this morning. Follow-up in the office in 1 week's time or call if he is having problems. No bending lifting or twisting activities and wear the [place] J collar at all times. Attestations Medical Necessity Statement*: Discharge home this morning Coding Level of Care Code Acute Code for Chg Fwd Diagnoses Status post cervical spinal fusion Z98.1
[2022-06-10 06:59] LABS: Glucose Point of Care 195 mg/dL (70-110)
[2022-06-10 08:00] VITALS: BP 133/75; PULSE 80; RESP 17; TEMP 36.6; O2SAT 100
[2022-06-10 08:27] VITALS: PULSE 97; RESP 16; O2SAT 98
== END 2022-06-10 08:52 | disposition home or self-care (01) | DRG 473 ==
LOC: MEDSURG 06-10 06:59
PROVIDERS: Admitting Provider Orthopaedic Surgery; PCP Family Medicine; Visit Provider Orthopaedic Surgery
PROC: 0RB30ZZ Excision of Cervical Vertebral Disc, Open Approach (ICD-10-PCS; CPT 22551; principal; 2022-06-09 07:00)
DX: M47.12 Other spondylosis with myelopathy, cervical region (principal); M48.02 Spinal stenosis, cervical region; M48.061 Spinal stenosis, lumbar region without neurogenic claudication; J44.9 Chronic obstructive pulmonary disease, unspecified; I10 Essential (primary) hypertension; K21.9 Gastro-esophageal reflux disease without esophagitis; E11.9 Type 2 diabetes mellitus without complications; E78.5 Hyperlipidemia, unspecified; Z79.52 Long term (current) use of systemic steroids; Z79.02 Long term (current) use of antithrombotics/antiplatelets; Z79.82 Long term (current) use of aspirin; Z79.899 Other long term (current) drug therapy; Z87.891 Personal history of nicotine dependence
CPT/HCPCS: 36415; 36416; 51702; 72020; 76000; 80048; 82962; 85025; 94640; 96372; 97161; C1713; C1763; C9359; J0131; J0330; J0690; J1100; J1170; J1815; J2370; J2405; J2704; J3010; J3490; J7030; J7120; L0172

== ENCOUNTER → 2022-06-12 07:56 | Outpatient (BNVA) | payer MEDICAID, SELFPAY | PROVIDERS: PCP Family Medicine; Visit Provider Orthopaedic Surgery | DX: Z47.89 Encounter for other orthopedic aftercare (principal); Z98.1 Arthrodesis status | CPT/HCPCS: 99024 ==

== ENCOUNTER 2022-06-13 07:58 | Outpatient (CLI) | payer MEDICAID, SELFPAY ==
--- NOTE | 2022-06-13 08:15 | US_ITS ---
WS: [id number] RIGHT UPPER QUADRANT ULTRASOUND HISTORY: abd pain COMPARISON: None available. Liver: 14.3 cm in length. Coarse echotexture. Mild heterogeneity throughout the liver. No mass. The e ntire liver is not well visualized due to body habitus. No bile duct dilatation. Portal Vein: Normal hepatopetal flow with monophasic waveform. Gallbladder: Normally distended gallbladder with no stones or wall thickening. CBD: 0.3 cm Pancreas: Obscured by bowel gas. Right kidney: 10.0 cm in length. Normal size and echogenicity. No hydronephrosis or mass. Aorta and IVC: Unremarkable abdominal aorta and IVC. No ascites. US/US gall bladder [id number] IMPRESSION: 1. Normal gallbladder. 2. Normal size liver with mild hepatic steatosis. The entire liver is not well visualized due to body habitus. 3. Obscured pancreas.
== END 2022-06-13 07:59 | disposition home or self-care (01) ==
PROVIDERS: PCP Family Medicine; Visit Provider Surgery
DX: R10.9 Unspecified abdominal pain (principal)
CPT/HCPCS: 76705

== ENCOUNTER → 2022-06-24 13:01 | Outpatient (BNVA) | payer MEDICAID, SELFPAY | PROVIDERS: PCP Family Medicine; Visit Provider Orthopaedic Surgery | DX: Z98.1 Arthrodesis status (principal); Z47.89 Encounter for other orthopedic aftercare | CPT/HCPCS: 99024 ==

== ENCOUNTER → 2022-07-22 13:01 | Outpatient (BNVA) | payer MEDICAID, SELFPAY | PROVIDERS: PCP Family Medicine; Visit Provider Orthopaedic Surgery | DX: Z47.89 Encounter for other orthopedic aftercare (principal); Z98.1 Arthrodesis status | CPT/HCPCS: 72040; 99024 ==

== ENCOUNTER 2022-07-31 09:51 | Outpatient (CLI) | payer MEDICAID, SELFPAY ==
--- NOTE | 2022-07-31 09:55 | NM_ITS ---
WS: [id number] NUCLEAR MEDICINE HIDA SCAN CLINICAL INFORMATION: ABD PAIN TECHNIQUE: Following intravenous administration of 8.0 mCi of technetium 99m mebrofenin, images of th e abdomen were obtained over the course of 60 minutes. Next, gallbladder ejection fraction was determ ined by obtaining preprandial and one-hour postprandial images of the gallbladder following oral schuyler stion of Ensure. COMPARISON: Ultrasound June 13, 2022 FINDINGS: Normal hepatic uptake at 5 minutes. Normal hepatic excretion. Normal common bile duct and small bowel activity. Gallbladder is visualized by 90 minutes. No evidence of acute cholecystitis. Gallbladder ejection fraction 54% within normal limits. No evidence of chronic cholecystitis. NM/NM hepatobiliary w phar* [id number] IMPRESSION: 1. No evidence of acute or chronic cholecystitis. 2. Gallbladder ejection fraction 54% within normal limits.
== END 2022-07-31 09:52 | disposition home or self-care (01) ==
LOC: RAD 09:52
PROVIDERS: PCP Family Medicine; Visit Provider Surgery
DX: R10.9 Unspecified abdominal pain (principal)
CPT/HCPCS: 78227; A9537

== ENCOUNTER 2022-07-31 15:35 | Outpatient (CLI) | payer MEDICAID, SELFPAY ==
--- NOTE | 2022-07-31 16:00 | CT_ITS ---
WS: [id number] CT CERVICAL SPINE TECHNIQUE: Noncontrast CT of the cervical spine with coronal and sagittal reformatted images. CLINICAL INFORMATION: post op complications COMPARISON: MRI cervical May 12, 2022 DLP: 153.[address] scans at [facility] use at least one of these dose optimization techniques: automated e xposure control; mA and/or kV adjustment per patient size (includes targeted exams where dose is matc hed to clinical indication); or iterative reconstruction. FINDINGS: Straightening of the normal cervical lordosis. Mild cervical curve. Postoperative changes ACDF C3-C7 with interbody fusion grafts. Postoperative changes are new since the prior MRI. Slight retrolisthesi s C4 on C5 unchanged. No evidence of hardware loosening. LEFT anterior fixation screw extends into th e C4-C5 disc space. C2-C3: Disc osteophyte complex eccentric to the LEFT. Moderate LEFT foraminal narrowing. C3-C4: Mild central canal stenosis. Moderate LEFT foraminal narrowing. Advanced LEFT facet arthropath y. C4-C5: Mild facet arthropathy. Mild central canal stenosis. Foramen are patent. C5-C6: Mild to moderate LEFT and mild RIGHT bony foraminal narrowing. Mild facet arthropathy. Mild ce ntral canal stenosis C6-C7: Mild LEFT and no significant RIGHT foraminal narrowing. Mild facet arthropathy. Spinal canal i s patent C7-T1: Normal Visualized posterior nasopharynx: Normal. Prevertebral soft tissues: Normal. CT/CT cervical spin wo con* [id number] IMPRESSION: 1. Postoperative changes are new from previous. 2. Retrolisthesis C4 on C5. LEFT C4 anterior fixation screw extends along the inferior endplate near the bone graft margin. 3. Hardware otherwise appears in good position with no evidence of loosening. 4. Mild central canal stenosis C3-C4, C4-C5, and C5-C6. 5. Moderate bony foraminal narrowing at LEFT C2-C3, LEFT C3-C4, and mild/moder ate LEFT C5-C6.
== END 2022-07-31 15:36 | disposition home or self-care (01) ==
LOC: RAD 15:38
PROVIDERS: PCP Family Medicine; Visit Provider Orthopaedic Surgery
DX: M48.02 Spinal stenosis, cervical region (principal); M43.12 Spondylolisthesis, cervical region; Z98.1 Arthrodesis status
CPT/HCPCS: 72125

== ENCOUNTER 2022-08-11 11:44 | Inpatient (IN) | payer MEDICAID, SELFPAY ==
[2022-08-11] VITALS (9 sets, daily range): BP systolic 104–140; BP diastolic 73–88; PULSE 72–91; RESP 15–17; TEMP 36.4–36.8; O2SAT 96–100
--- NOTE | 2022-08-11 12:02 | CT_ITS ---
WS: [id number] CT HEAD TECHNIQUE: Noncontrast CT of the head obtained from the skullbase to the vertex. CLINICAL INFORMATION: Symptoms of acute stroke COMPARISON: None. DLP: [id number] scans [address] [facility] use at least one of these dose optimization techniques: automated e xposure control; mA and/or kV adjustment per patient size (includes targeted exams where dose is matc hed to clinical indication); or iterative reconstruction. FINDINGS: No evidence of intracranial hemorrhage or mass effect. Ventricular system and basal cisterns are lucas nt. Minimal small vessel changes with mild parenchymal volume loss. No extra-axial fluid collections. No evidence of mass or mass effect. Normal nails-white differentiation. Vascular calcification. Paranasal sinuses and mastoid air cells are well aerated. .Normal visualized soft tissues. CT/CT head thrombolytic [id number] IMPRESSION: 1. No evidence of intracranial hemorrhage or mass effect. 2. Minimal small vessel changes. Mild parenchymal volume loss in several areas . 3. Vascular calcification. 4. No acute intracranial findings. Notified Tiara Cobos MD at 08/11/2022 12:17 PM.
--- NOTE | 2022-08-11 12:07 | W.ED.NEUROSD ---
HPI - Neuro Symptoms/Deficit General: Chief Complaint: Neuro Symptoms/Deficit Stated Complaint: facial numbness, tingling, slurred speech Time Seen by Provider: 08/11/22 11:53 History of Present Illness: This 56-year-old male with a history of hyperlipidemia, diabetes and GERD was brought to the ER for evaluation of right-sided weakness. Patient notes that he went to bed between 11 PM and midnight and woke up around 7 AM this morning to notice that the right side of his body was weak. , who was in the room, noted that around 9 AM, he noticed a right facial droop. So patient was brought in for evaluation. His speech is clear and he is alert and oriented. He has a c-collar along due to neck surgery. He is clinically stable. Associated symptoms: Deny chest pain Review of Systems Const: Denies: chills, body aches or change in appetite Eyes: Denies: change in vision or eye discharge ENMT: Denies: throat pain, dental pain or nasal discharge Card: Denies: chest pain or lightheadedness : Denies: dysuria Musc: Denies: neck pain or back pain Neuro: Reports: weakness in extremities (Right upper and right lower extremities.) and other (Numbness right side of the face.) Psych: Denies: depression Roland/Lymph: Denies: easy bruising All/Imm: Denies: urticaria, tongue swelling or facial swelling PFSH ED PFSH: Medical History Constipation Diabetic acidosis, type II GERD (gastroesophageal reflux disease) Surgical History Hx of colonoscopy with polypectomy total of 3. Last done 12/2018 at [facility] Hx of hernia repair x2 Inguinal Hx of knee surgery Right side and possibly left side Hx of kyphoplasty Family History Father Cancer Esephageal cancer Mother Cancer Sister Cancer kidney cancer Social History Smoking and tobacco status: former smoker Alcohol intake: current Alcohol intake frequency: holidays/special occasions only Physical Exam Const: COMMON NORMALS: no acute distress, patient oriented x3, no limitations and alert HENMT: COMMON NORMALS: normocephalic HEAD & SCALP: normocephalic Eye: COMMON NORMALS: EOMs intact bilaterally Neck/C-Spine: COMMON NORMALS: full ROM and supple Chest: COMMONS NORMALS: normal inspection of the chest Resp: COMMON NORMALS: normal respiratory effort, No retractions, No use of accessory muscles and clear to auscultation bilaterally AUSCULTATION: clear to auscultation bilaterally Cardio: COMMON NORMALS: regular rate, regular rhythm and No murmurs present (Cardio) RATE: regular rate RHYTHM: regular rhythm GI: COMMON NORMALS: Normal to inspection, nondistended, normoactive bowel sounds present and non-tender : COMMON NORMALS: Yes no CVA tenderness BLADDER/KIDNEY EXAM: Yes no CVA tenderness Back/Pelvis: COMMON NORMALS: no CVA tenderness and no thoracic nor lumbar tenderness Extremity: GENERAL: Yes normal exam except as noted Neuro: COMMON NORMALS: patient oriented x3 SENSORIUM/ORIENTATION: Yes alert SENSORY EXAM: Yes other (Slightly diminished sensation right side of the face.) MOTOR EXAM: Other motor observations present (Strength is 4+ out of 5 in the right upper and right lower extremities.) Psych: COMMON NORMALS: mental status grossly normal and cooperative Course Consultations: Consultation #1: Radiologist called to say that CT brain is negative for any acute intracranial process. Dr. Richards evaluated patient in the ER. NIHSS is 3. Because he has a history of contrast allergy, he recommended getting an MRA head without contrast and MRA neck with IV contrast. If there is no critical occlusion, patient can be admitted here. If MRA shows a critical occlusion, patient will need to be transferred for possible thrombectomy. Consultation #2: MRA head and MRA neck are both negative for any critical stenosis. Case discussed with Dr. Bautista who accepted patient for admission. Time: 17:19 Vital Signs: Vital signs: Vital Signs Temperature 97.9 F 08/11/22 20:00 Pulse Rate 88 08/11/22 20:22 Respiratory Rate 17 08/11/22 20:00 Blood Pressure 118/81 08/11/22 20:22 Pulse Oximetry 97 08/11/22 20:22 Oxygen Delivery Me thod Room Air 08/11/22 20:27 MDM - Neuro Symptoms/Deficit Medical Decision Making Medical decision making: History as above. Due to persistent right-sided weakness, patient will be admitted for further evaluation. Case discussed with Dr. Bautista who accepted patient for admission. Lab Data 08/11/22 12:03 08/11/22 12:[address] 08/11/22 12:02 IMPRESSION: 1. No evidence of intracranial hemorrhage or mass effect. 2. Minimal small vessel changes. Mild parenchymal volume loss in several areas. 3. Vascular calcification. 4. No acute intracranial findings. Notified Tiara Cobos MD at 08/11/2022 12:17 PM. Head MRA 08/11/22 12:34 IMPRESSION: Normal MRA [place]. Hypoplastic LEFT P-comm. Normal variant. Neck MRA 08/11/22 12:34 IMPRESSION: No stenosis or occlusion. REFERENCES: NASCET CRITERIA. The degree of stenosis in the cervical segment of the internal carotid artery is based on NASCET criteria. Normal is no stenosis. Mild is less than 50% stenosis. Moderate is 50-69% stenosis. Severe is 70% to 99% stenosis. Total occlusion is no detectable patent lumen. Laboratory Results WBC 17.0 10^3/uL (4.0-10.0) H 08/11/22 12:03 RBC 4.66 10^6/uL (4.1-5.3) 08/11/22 12:03 Hgb 9.5 g/dL (11.7-16.6) L 08/11/22 12:03 Hct 34.1 % (42.0-52.0) L 08/11/22 12:03 MCV 73.2 fl (80-94) L 08/11/22 12:03 MCH 20.4 pg (28.0-34.0) L 08/11/22 12:03 MCHC 27.9 g/dL (30.0-36.0) L 08/11/22 12:03 RDW 16.6 % (12.1-15.1) H 08/11/22 12:03 Plt Count 423 10^3/cmm (130-400) H 08/11/22 12:03 MPV 10.1 fL (7.4-10.4) 08/11/22 12:03 Neut % (Auto) 74.7 % 08/11/22 12:03 Lymph % (Auto) 15.6 % 08/11/22 12:03 [place] % (Auto) 7.5 % 08/11/22 12:03 Eos % (Auto) 1.0 % 08/11/22 12:03 Baso % (Auto) 0.7 % 08/11/22 12:03 Neut # (Auto) 12.71 10^3/uL (1.8-7.7) H 08/11/22 12:03 Lymph # (Auto) 2.7 10^3/uL (0.8-4.8) 08/11/22 12:03 [place] # (Auto) 1.3 10^3/uL (0.2-0.9) H 08/11/22 12:03 Eos # (Auto) 0.2 10^3/uL (0.0-0.8) 08/11/22 12:03 Baso # (Auto) 0.1 10^3/uL (0.0-0.1) 08/11/22 12:03 Nucleated RBC % (auto) 0 % 08/11/22 12:03 Nucleated RBCs # 0.0 /100WBC 08/11/22 12:03 PT 12.10 SECONDS (12.1-14.9) 08/11/22 12:03 INR 0.87 (0.8-1.2) 08/11/22 12:03 APTT 24.7 SECONDS (23.9-36.7) 08/11/22 12:03 Sodium 138 mmol/L (136-145) 08/11/22 12:03 Potassium 3.6 mmol/L (3.5-5.1) 08/11/22 12:03 Chloride 101 mmol/L (98-107) 08/11/22 12:03 Carbon Dioxide 25 mmol/L (22-29) 08/11/22 12:03 Anion Gap 15.6 (5-19) 08/11/22 12:03 BUN 6 mg/dL (6-20) 08/11/22 12:03 Creatinine 0.8 mg/dL (0.7-1.2) 08/11/22 12:03 GFR Calculation 99.3 mL/min (90-130) 08/11/22 12:03 Glucose 123 mg/dL (65-115) H 08/11/22 12:03 Calculated Osmolality 285 mOsm/kg (285-295) 08/11/22 12:03 Calcium 9.2 mg/dL (8.5-10.5) 08/11/22 12:03 Total Bilirubin 0.2 mg/dL (0.15-1.2) 08/11/22 12:03 AST 14 U/L (0-40) 08/11/22 12:03 ALT 12 U/L (0-41) 08/11/22 12:03 Alkaline Phosphatase 79 U/L (40-130) 08/11/22 12:03 Total Protein 7.8 g/dL (6.6-8.7) 08/11/22 12:03 Albumin 4.0 g/dL (3.5-5.2) 08/11/22 12:03 Globulin 3.8 g/dL (1.3-4.6) 08/11/22 12:03 Urine Color Straw (Yellow) 08/11/22 17:30 Urine Appearance Clear (CLEAR) 08/11/22 17:30 Urine pH 5 (5-7) 08/11/22 17:30 Ur Specific [place] 1.005 (1.005-1.030) 08/11/22 17:30 Urine Protein Neg (Negative) 08/11/22 17:30 Urine Glucose (UA) Norm (Normal) 08/11/22 17:30 Urine Ketones Negative (Negative) 08/11/22 17:30 Urine Blood Neg (Negative) 08/11/22 17:30 Urine Nitrate Negative (Negative) 08/11/22 17:30 Urine Bilirubin Neg (Negative) 08/11/22 17:30 Urine Urobilinogen Norm mg/dL (Negative) 08/11/22 17:30 Ur Leukocyte Esterase Negative (Negative) 08/11/22 17:30 EKG Data EKG 1: Interpretation: Sinus rhythm, rate of 78, normal axis, normal intervals, normal QRS, no STEMI. Discharge Plan Discharge Patient Disposition: Placed in Observation Admit Provider: Gerber Bautista Clinical Impression: Acute right-sided weakness Coding Level of Care Code ED Aircraft Log Clerk for Mere Gonzalez
[2022-08-11 12:08] LABS: Basophils # 0.1 10^3/uL (0.0-0.1); Basophils % 0.7 %; Eosinophils # 0.2 10^3/uL (0.0-0.8); Hematocrit 34.1 % (42.0-52.0); Hemoglobin 9.5 g/dL (11.7-16.6); Lymphocytes # 2.7 10^3/uL (0.8-4.8); Lymphocytes % 15.6 %; Mean Corpuscular HGB Conc 27.9 g/dL (30.0-36.0); Mean Corpuscular Hemoglobin 20.4 pg (28.0-34.0); Mean Corpuscular Volume 73.2 fl (80-94); Mean Platelet Volume 10.1 fL (7.4-10.4); Monocytes # 1.3 10^3/uL (0.2-0.9); Monocytes % 7.5 %; Neutrophils # 12.71 10^3/uL (1.8-7.7); Neutrophils % 74.7 %; Nucleated Red Blood Cells % 0 %; Platelet Count 423 10^3/cmm (130-400); Red Blood Count 4.66 10^6/uL (4.1-5.3); Red Cell Distribution Width 16.6 % (12.1-15.1)
[2022-08-11 12:18] LABS: INR 0.87 (0.8-1.2)
[2022-08-11 12:19] LABS: Partial Thromboplastin Time 24.7 SECONDS (23.9-36.7)
[2022-08-11 12:24] LABS: Alanine Aminotransferase 12 U/L (0-41); Alkaline Phosphatase 79 U/L (40-130); Anion Gap 15.6 (5-19); Aspartate Amino Transferase 14 U/L (0-40); Blood Urea Nitrogen 6 mg/dL (6-20); Calcium 9.2 mg/dL (8.5-10.5); Carbon Dioxide 25 mmol/L (22-29); Chloride 101 mmol/L (98-107); Globulin 3.8 g/dL (1.3-4.6); Glomerular Filtration Rate 99.3 mL/min (90-130); Glucose 123 mg/dL (65-115); Osmolality Calculated 285 mOsm/kg (285-295); Potassium 3.6 mmol/L (3.5-5.1); Sodium 138 mmol/L (136-145); Total Bilirubin 0.2 mg/dL (0.15-1.2); Total Protein 7.8 g/dL (6.6-8.7)
--- NOTE | 2022-08-11 12:28 | ECG_ITS ---
[facility] Test Date: 2022-08-11 Pat Name: Coy Gutierrez Department: Room: Gender: Male Mft: : 1965 Requested By: Tiara Colbert Order Number: [id number] Mohini MD: Nasir Sharif M.D. Measurements Intervals [place] Rate: 78 P: 65 PA: 194 QRS: 46 QRSD: 100 T: 55 QT: 370 QTc: 422 Interpretive Statements SINUS RHYTHM Compared to ECG 11/18/2016 20:40:18 Sinus tachycardia no longer present Electronically Signed On 08-11-2022 16:43:28 CDT by Nasir Sharif M.D. [email or web address]
--- NOTE | 2022-08-11 12:34 | MRR_ITS ---
PROCEDURE INFORMATION: Exam: MRA Neck With Contrast Exam date and time: 08/11/2022 3:44 PM Age: 56 years old Clinical indication: Numbness; Prior surgery; Surgery date: <1 month; Surgery type: C spine a few weeks ago; Additional info: Right sided weakness TECHNIQUE: Imaging protocol: Magnetic resonance angiography of the neck with contrast. Angiographic sequences such as [id number]-wx-mxbxoc (TOF) or Time-resolved contrast techniques were performed. Contrast material: MULTIHANCE; Contrast volume: 17 ml; Contrast route: INTRAVENOUS (IV); COMPARISON: CT cervical spin wo con* [id number] 07/31/2022 3:42 PM FINDINGS: Right common carotid artery: No stenosis. No dissection or occlusion. Right internal carotid artery: No stenosis of the extracranial segment. No dissection or occlusion. Right external carotid artery: No stenosis. No dissection or occlusion of the origin. Right vertebral artery: No stenosis. No dissection or occlusion. Left common carotid artery: No stenosis. No dissection or occlusion. Left internal carotid artery: No stenosis of the extracranial segment. No dissection or occlusion. Left external carotid artery: No stenosis. No dissection or occlusion of the origin. Left vertebral artery: No stenosis. No dissection or occlusion. MR/MR angio neck w con* [id number] IMPRESSION: No stenosis or occlusion. REFERENCES: NASCET CRITERIA. The degree of stenosis in the cervical segment of the internal carotid artery is based on NASCET criteria. Normal is no stenosis. Mild is less than 50% stenosis. Moderate is 50-69% stenosis. Severe is 70% to 99% stenosis. Total occlusion is no detectable patent lumen.
--- NOTE | 2022-08-11 12:34 | MR_ITS ---
WS: [id number] MRA ANGIOGRAPHY [place] HISTORY: right sided weakness COMPARISON: None available. TECHNIQUE: 3-D MR angiography is performed of the [place]. All images are reviewed including source images. Distal vertebral and basilar arteries are intact with no significant stenosis or plaque. Posterior ce rebral arteries are normal course and caliber. Posterior communicating artery is hypoplastic or not v isualized on the LEFT. The RIGHT is normal. Intracranial portion of the internal carotid arteries are normal course and caliber. No significant a therosclerosis, stenosis or aneurysm identified. Middle and anterior cerebral arteries are both paten t with no significant disease. Anterior communicating artery is also normal. MR/MR angio head wo con [id number] IMPRESSION: Normal MRA [place]. Hypoplastic LEFT P-comm. Normal variant.
--- NOTE | 2022-08-11 13:07 | P.CONIM_ITS ---
Providers/Reason For Consult Consulting Physician/Specialty*: Sy Richards MD neurology and epilepsy Reason for Consult*: Code stroke ER bed #10 Primary Care Provider: Opal Felipe DO History of Present Illness History of Present Illness Coy Gutierrez is a 56 year old male with a history of stroke and TIAs 5 years ago as well as history of seizures described as altered awareness with loss of consciousness and shaking episodes, last episode 5 years ago, type 2 diabetes mellitus, COPD, asthma, hypertension, and autoimmune lung disease. According to the patient's who was present in the emergency room ER bed #10, the patient went to bed last night around midnight. She states that the patient was fine at that time and in his usual state of health. The patient woke up this morning on 08/11/2022 at 7 AM. At that time the patient stated the patient was rubbing his right eye and his right cheek. The stated that the patient reported that it felt like his face was swelling. She noticed that his right eye was almost closed and he had a right facial droop. According to the the patient refused to go to the hospital but since the symptoms did not improve she decided to drive the patient to the hospital. In route to the hospital the patient stated the patient was confused and Asking where they were going the patient also started complaining of right-sided numbness involving his arm and leg as well as blurred vision in the right eye. The patient arrived at the emergency room at 11:50 AM which is outside of the tPA window of 3 to 4-1/2 hours. Patient was taken back to the CT scanner as soon as he arrived. Code stroke was initiated at 11:[address] was reported to be negative. I arrived to evaluate the patient and he was alert and oriented to person place and situation. He was able to give most of the history regarding his condition although his was also at the patient's bedside assisting by also providing history about what happened to the patient. The patient reported blurred vision in the right eye and he had a drift in the right upper extremity and decreased sensation in a V3 distribution in the right lower face. NIH score = 3. The patient and also informed me that the patient is allergic to iodine contrast medium which resulted in anaphylactic type wheezing. Therefore I recommend the patient undergo MRA of the great vessels of the neck with and without contrast and MRA of the [place] without contrast to assess for thrombosis of the great vessels to determine if the patient was a candidate for thrombectomy since he is outside of the tPA window. I also recommended a cardiac work-up on his heart. The patient and the agree with this plan. This information was discussed with the attending ER physician. Past medical history Seizure disorder stable off medication for 5-year History of remote stroke 5 years ago History of remote TIAs 5 years ago Hypertension Insulin requiring type 2 diabetes mellitus Chronic obstructive pulmonary disease Asthma Autoimmune lung disease Cervical spondylosis with myelopathy status post surgery 6 to 7 weeks prior to admission Drug allergies: Iodine contrast medium which resulted in anaphylactic type wheezing Doxycycline which resulted in anaphylactic type difficulty breathing Sulfonamide antibiotics which resulted in difficulty breathing Varenicline which resulted in hallucinations Hydralazine which resulted in photosensitivity Adhesive tape which resulted in a rash Brexpiprazole type of reaction not indicated Current outpatient medications: Norvasc 10 mg p.o. daily Plavix 75 mg p.o. every morning Aspirin 81 mg p.o. daily Lipitor 40 mg p.o. daily Azelastine 137 mcg nasal spray 1 spray intranasally twice a day Budesonide 160 mcg?glycopyr 9 mcg-formot 4.8 mcg per Actuation 2 inhalations twice daily Carvedilol 3.125 mg p.o. twice daily as needed for elevated heart rate Benadryl 25 mg p.o. 3 times daily, as needed allergy symptoms Vitamin D2 1250 mcg p.o. every 30 days Advair Diskus multidose inhaler 1 inhalation twice a day Esomeprazole 40 mg p.o. daily Lasix 20 mg p.o. daily Glycopyrrolate 1 mg p.o. 3 times daily Hydrocodone 10?acetaminophen 325 mg tablets 1 p.o. every 4 hours as needed pain Insulin 100 units/mL 5 units subcu 4 times a day Lantus insulin 16 units cutaneously every Lactulose 10 g per 15 mL 15 mL p.o. 3 times daily as needed constipation Zofran 4 mg p.o. every 8 hours as needed for nausea Patanase 2 sprays intranasally twice a day Naloxone 4 mg per Actuation nasal spray 4 mg intranasally every 2 hours if needed for overdose Polyethylene glycol 17 g p.o. as needed constipation Prednisone 5 mg p.o. daily Testosterone 80 mg subcutaneously every 14-day Ambien 10 mg p.o. nightly as needed for sleep Habits: None Review of Systems General: Reports: 10 or more systems reviewed and unremarkable except in HPI and below Eyes: Reports: change in vision, blurry vision and eye discomfort GI: Reports: nausea Musc: Reports: neck pain, extremity pain and muscle weakness Neuro: Reports: numbness in extremities, weakness in extremities, seizure-like activity (History of seizures none in 5 years) and other (History of strokes and TIAs 5 years ago) Medications/Allergies Home Medications Medication Instructions Recorded Confirmed Last Taken Type albuterol sulfate 90 mcg/actuation 1 inh inhalation QID PRN Shortness 04/17/22 08/11/22 04/30/22 History aerosol inhaler Of Breath amlodipine 10 mg tablet 10 mg PO DAILY PRN Blood Pressure 04/17/22 08/11/22 06/08/22 History aspirin 81 mg tablet,delayed 81 mg PO DAILY 04/17/22 08/11/22 08/11/22 History release atorvastatin 40 mg tablet 40 mg PO DAILY 04/17/22 08/11/22 08/10/22 History azelastine 137 mcg (0.1 %) nasal 1 spray intranasal BID 04/17/22 08/11/22 06/09/22 History spray aerosol budesonide 160 mcg-glycopyr 9 2 inh inhalation BID 04/17/22 08/11/22 04/30/22 History mcg-formot 4.8 mcg/actuation HFA inhaler (Breztri Aerosphere) carvedilol 3.125 mg tablet 3.125 mg PO BID PRN heartrate 04/17/22 08/11/22 06/08/22 History clopidogrel 75 mg tablet 75 mg PO DAILY 04/17/22 08/11/22 08/11/22 History ergocalciferol (vitamin D2) 1,250 1,250 mcg PO Q30D 04/17/22 08/11/22 06/08/22 History mcg (50,000 unit) capsule esomeprazole magnesium 40 mg 40 mg PO DAILY 04/17/22 08/11/22 08/10/22 History capsule,delayed release furosemide 20 mg tablet 20 mg PO DAILY 04/17/22 08/11/22 08/11/22 History glycopyrrolate 1 mg tablet 1 mg PO TID 04/17/22 08/11/22 08/11/22 History insulin aspart U-100 100 unit/mL 5 unit SUBCUT QID 04/17/22 08/11/22 06/06/22 History subcutaneous cartridge (Novolog PenFill U-100 Insulin aspart) lactulose 10 gram/15 mL (15 mL) 15 ml PO TID PRN constipation 1 04/17/22 08/11/22 Unknown Rx oral solution month #315 mL naloxone 4 mg/actuation nasal 4 mg intranasal Q2M PRN overdose 04/17/22 08/11/22 Unknown History spray (Narcan) ondansetron HCl 4 mg tablet 4 mg PO Q8H PRN Nausea 04/17/22 08/11/22 04/30/22 History pen needle, diabetic 31 gauge x 04/17/22 08/11/22 Unknown History 3/16 (TechLITE Pen Needle) polyethylene glycol 3350 17 17 g PO DAILY PRN Constipation 04/17/22 08/11/22 04/30/22 History gram/dose oral powder testosterone cypionate 200 mg/mL 80 mg SUBCUT Q14D 04/17/22 08/11/22 06/04/22 History intramuscular oil zolpidem 10 mg tablet 10 mg PO DAILY PRN Insomnia 04/17/22 08/11/22 04/30/22 History prednisone 5 mg tablet 5 mg PO DAILY 04/29/22 08/11/22 08/11/22 History hydrocortisone 2.5 % topical cream 1 applic ND QID PRN Itching 06/02/22 08/11/22 Unknown History with perineal applicator (Anusol-HC) insulin glargine 100 unit/mL (3 16 unit SUBCUT QAM ##0 06/02/22 08/11/22 08/10/22 History mL) subcutaneous pen (Lantus Solostar U-100 Insulin) diphenhydramine HCl 25 mg capsule 25 mg PO TID PRN allergy symptoms 06/12/22 08/11/22 Unknown Rx (Benadryl) #60 caps hydrocodone 10 mg-acetaminophen 1 tab PO Q4H PRN Pain 7 days #40 06/24/22 08/11/22 Unknown Rx 325 mg tablet tabs fluticasone 250 mcg-salmeterol 50 1 inh inhalation BID 08/11/22 08/11/2208/10/23 History mcg/dose blistr powdr for inhalation (Advair Diskus) levofloxacin 500 mg tablet 500 mg PO DAILY 08/11/22 08/11/22 Unknown History olopatadine 0.6 % nasal spray 2 spray intranasal BID 08/11/22 08/11/22 Unknown History (Patanase) Allergies Allergy/AdvReac Type Severity Reaction Status Date / Time brexpiprazole Allergy Severe ADR-Halluci Verified 07/22/22 13:03 nating doxycycline Allergy Severe ALGY-Difficulty Verified 07/22/22 13:03 Breathing Iodinated Contrast Media Allergy Severe ALGY-Wheezi Verified 07/22/22 13:03 ng Sulfa (Sulfonamide Allergy Severe ALGY-Difficulty Verified 07/22/22 13:03 Antibiotics) Breathing varenicline Allergy Severe ADR-Halluci Verified 07/22/22 13:03 nating hydralazine Allergy Intermediate ADR-Photose Verified 07/22/22 13:03 nsitivity adhesive tape Allergy Mild ALGY-Rash Uncoded 07/22/22 13:03 PFSH Acute PFSH: Medical History Constipation Diabetic acidosis, type II GERD (gastroesophageal reflux disease) Surgical History Hx of colonoscopy with polypectomy total of 3. Last done 12/2018 at [facility] Hx of hernia repair x2 Inguinal Hx of knee surgery Right side and possibly left side Hx of kyphoplasty Family History Father Cancer Esephageal cancer Mother Cancer Sister Cancer kidney cancer Social History Smoking and tobacco status: former smoker Alcohol intake: current Alcohol intake frequency: holidays/special occasions only Vitals/I&O/Wt Last Vital Signs Temp 98.3 F 08/11/22 12:05 Pulse 75 08/11/22 12:08 Resp 15 08/11/22 12:05 BP 139/86 08/11/22 12:08 Pulse Ox 98 08/11/22 12:08 O2 Del Method Room Air 08/11/22 12:08 Weight last 48 hrs Weight 153 lb Physical Exam Narrative: NIH score = 3 Note: The patient was outside of the tPA window and therefore he was not a candidate for tPA. The patient is currently alert and oriented to person place and situation. Patient knew the month and his age. Speech is clear. Head atraumatic. Patient is wearing a hard cervical collar secondary to history of recent cervical disc surgery. Visual [place] difficult to assess but appear to be full. The patient did report blurred vision in the right eye but no loss of vision. Pupils 4 mm. Pupils round reactive to light and accommodation. Extraocular movements intact and there were no nystagmus. Cranial nerves II through XII revealed decreased pinprick in the right lower face in a V3 distribution. Other cranial nerves were intact. Motor testing revealed 3/5 strength in the right upper extremity with no drift. Other motor testing was 5/5. Deep tendon reflexes 2+ bilaterally. Plantar responses flexor bilaterally. There was no clonus. Senso ry examination was intact to touch, pinprick and proprioception. There was no extinction on double sensory stimulation. There was no neglect. Throat clear. Lungs clear. Heart regular rhythm and rate. Abdomen soft bowel sounds positive. Extremities were negative for clubbing cyanosis or edema. Data 08/11/22 12:03 08/11/22 12:03 A&P Assessment and plan (1) Left sided cerebral hemisphere cerebrovascular accident: Plan Assessment: 1. Code stroke 11:53 AM on 08/11/2022 2. Clinical history and examination suggestive of left subcortical versus cortical infarction(blurred vision in the right eye, right lower facial weakness, decreased sensation in the right lower face in a V3 distribution, drift in the right upper extremity with approximate 3/5 strength in the right upper extremity) 3. History of remote stroke and TIAs 5 years ago 4. Hypertension 5. Insulin requiring type 2 diabetes mellitus 6. History of seizures 5 years ago 7. Chronic obstructive pulmonary disease 8. Asthma 9. Status post cervical fusion 6 or 7 weeks prior to admission 10. Severe reaction to iodine contrast medium resulting in wheezing/breathing issues Plan: 1. Recommend MRA with and without contrast of the great vessels of the neck and MRA without contrast of the [place] to assess for thrombosis and to determine if patient is a candidate for thrombectomy at another facility since the patient presented to the [facility] emergency room outside of the 3 to 4-1/2-hour tPA window (the stated the patient's symptoms began at 7 AM today and the patient arrived at the emergency room at 11:50 AM today). 2. Continue Plavix and aspirin and consider increasing Lipitor Consult Attestations Medical Necessity Statement: The patient was seen by neurology for code stroke emergency room bed 10 Coding Level of Care Code 37256 Diagnoses Left sided cerebral hemisphere cerebrovascular accident I63.9 Time Spent (min) 30
[2022-08-11] MEDS: acetaminophen 325 mg Tablet 650 MG PO (13:10)
[2022-08-11] MEDS: LORazepam 2 mg/mL INJ 1 mL 1 MG IVP (13:26)
[2022-08-11] MEDS: gadobenate dimeglumine 20 mL vial IV (16:34)
[2022-08-11] MEDS: ketorolac 30 mg/mL INJ IVP ×2 (17:32→22:32)
[2022-08-11 17:48] LABS: Add Urine Microscopic? NO; Charge for UA Resulting for Rev
[2022-08-11 17:54] LABS: Urine Appearance Clear (CLEAR); Urine Color Straw (Yellow); pH Urine 5 (5-7)
[2022-08-11 17:55] LABS: Bilirubin Urine Neg (Negative); Blood Urine Neg (Negative); Glucose Urine UA Norm (Normal); Ketones Urine Negative (Negative); Leukocyte Esterase Urine Negative (Negative); Nitrate Urine Negative (Negative); Protein Urine Neg (Negative); Specific Gravity, Urine 1.005 (1.005-1.030); Urobilinogen Urine Norm (Negative)
--- NOTE | 2022-08-11 18:14 | USCV_ITS ---
Coy Gutierrez Age: 56 Gender: M : 1965 Exam Date: 08/11/2022 21:09 Ordering Phys: Gerber Bautista MD Technologist: JUDD [place] [facility] [place]: RIGHT hemiparesis s/p neck surgery 2 weeks ago. No history of cardiac intervention. BUBBLE STUDY IS ORDERED. BP: 140 / 88 HR: 77 Rhythm: Sinus Technical Quality: Adequate MEASUREMENTS (Male / Female) Normal Values 2D ECHO LV Diastolic Diameter PLAX 3.8 cm 4.2 - 5.9 / 3.9 - 5.3 cm LV Systolic Diameter PLAX 2.4 cm IVS Diastolic Thickness 1.2 cm 0.6 - 1.0 / 0.6 - 0.9 cm IVS Systolic Thickness 1.9 cm LVPW Diastolic Thickness 1.3 cm 0.6 - 1.0 / 0.6 - 0.9 cm LVPW Systolic Thickness 1.6 cm LVOT Diameter 1.9 cm LV Ejection Fraction 2D Teich 67.0 % LV Ejection Fraction MOD 2C 60.9 % LV Ejection Fraction 2C AL 59.8 % LA Diameter 2.6 cm LA Width 2.5 cm LA Height 4.3 cm RA Width 2.9 cm RA Height 4.2 cm Aorta at Sinotubular Diameter 2.9 cm IVC Diameter 1.3 cm M-MODE Aortic Annulus Diameter 3.0 cm LA Ao Ratio MM 0.9 MV E Point Septal Separation 0.3 cm DOPPLER AV Peak Velocity 126.0 cm/s LVOT Peak Velocity 124.0 cm/s AV Area Cont Eq vti 2.7 cm squared AV Area Cont Eq pk 2.7 cm squared MV Peak Velocity 120.0 cm/s MV Area PHT 3.7 cm squared Mitral E to A Ratio 0.9 MV E' Velocity 44.0 cm/s Mitral E to MV E' Ratio 8.6 Mitral E to LV E' Lateral Ratio 8.7 Mitral E to LV E' Septal Ratio 8.5 TV Peak E Velocity 56.0 cm/s PV Peak Velocity 105.0 cm/s RV Acceleration Time 0.1 s RV Ejection Time 0.4 s RV AcT/ET 0.3 FINDINGS Left Ventricle Normal left ventricular size, systolic function and wall thickness, with no regional wall motion abnormalities. Left ventricular ejection fraction is estimated at 65 %. Normal diastolic function. Right Ventricle Normal right ventricular size and systolic function. RVSP could not be calculated due to incomplete tricuspid regurgitation velocity profile. Right Atrium Normal right atrial size. No evidence of intracardiac shunt based on bubble study Left Atrium Normal left atrial size. Mitral Valve Structurally normal mitral valve. No mitral valve stenosis. No mitral valve regurgitation. Aortic Valve Structurally normal trileaflet aortic valve. No aortic valve stenosis. No aortic valve regurgitation. Tricuspid Valve Structurally normal tricuspid valve. Trace tricuspid valve regurgitation. Pulmonic Valve Pulmonic valve not well visualized. No pulmonary valve stenosis. Trace pulmonary valve regurgitation. Pericardium No pericardial effusion. Aorta Normal size aortic root and proximal ascending aorta. IVC Normal IVC dimension with >50% respiratory change of the inferior vena cava. CONCLUSIONS 1. Normal left ventricular size, systolic function and wall thickness, with no regional wall motion abnormalities. Left ventricular ejection fraction is estimated at 65 %. Normal diastolic function. 2. No evidence of intracardiac shunt based on bubble study. 3. No significant valvular abnormality. Dee Madera MD (Electronically Signed) Final Date: 12 August 2022 12:03 S
--- NOTE | 2022-08-11 18:17 | P.HP_ITS ---
Providers/Chief Complaint Primary Care Provider: Opal Felipe DO Chief Complaint: facial numbness, tingling, slurred speech History of Present Illness Coy Gutierrez is a 56 year old male with PMH of DM ,HTN, CVA ,TIA came in with c/o acute onset of rt facial swelling , rt sided blurred vision, as well as rt sided tingling ,numbness that started around 7 am this morning, patient initially was reluctant to come to the hospital but later his drove him to the hospital en route patient was also confused,he arrived in the ER at around 11:50 am at that time he was out of tpa window, imaging srudies were done for possible thrombectomy, which was negative for any significant stenosis.Upon arrival patient reported : blurred vision in the right eye and he had a drift in the right upper extremity and decreased sensation in a V3 distribution in the right lower face.? NIH score = 3 C.T Head without contrast : showed no acute intracranial pathology, head MRA as well as neck MRA failed to show any significant stenosis,currently patient was admitted for the management of Ac CVA. Review of Systems General: Reports: 10 or more systems reviewed and unremarkable except in HPI and below Const: Denies: fever(s), chills, body aches, change in appetite or diaphoresis Card: Denies: palpitations, edema, swelling of feet/ankles, dyspnea on exertion, orthopnea or leg pain with exertion Resp: Denies: dyspnea, productive cough, wheezing or pain on inspiration GI: Denies: abdominal pain, nausea, vomiting, diarrhea or constipation : Denies: flank pain or difficulty urinating Musc: Denies: back pain, extremity pain or extremity swelling Neuro: Denies: headache(s) or confusion Medications/Allergies Home Medications Medication Instructions Recorded Confirmed Last Taken Type albuterol sulfate 90 mcg/actuation 1 inh inhalation QID PRN Shortness 04/17/22 08/11/22 04/30/22 History aerosol inhaler Of Breath amlodipine 10 mg tablet 10 mg PO DAILY PRN Blood Pressure 04/17/22 08/11/22 06/08/22 History aspirin 81 mg tablet,delayed 81 mg PO DAILY 04/17/22 08/11/22 08/11/22 History release atorvastatin 40 mg tablet 40 mg PO DAILY 04/17/22 08/11/22 08/10/22 History azelastine 137 mcg (0.1 %) nasal 1 spray intranasal BID 04/17/22 08/11/22 06/09/22 History spray aerosol budesonide 160 mcg-glycopyr 9 2 inh inhalation BID 04/17/22 08/11/22 04/30/22 History mcg-formot 4.8 mcg/actuation HFA inhaler (Breztri Aerosphere) carvedilol 3.125 mg tablet 3.125 mg PO BID PRN heartrate 04/17/22 08/11/22 06/08/22 History clopidogrel 75 mg tablet 75 mg PO DAILY 04/17/22 08/11/22 08/11/22 History ergocalciferol (vitamin D2) 1,250 1,250 mcg PO Q30D 04/17/22 08/11/22 06/08/22 History mcg (50,000 unit) capsule esomeprazole magnesium 40 mg 40 mg PO DAILY 04/17/22 08/11/22 08/10/22 History capsule,delayed release furosemide 20 mg tablet 20 mg PO DAILY 04/17/22 08/11/22 08/11/22 History glycopyrrolate 1 mg tablet 1 mg PO TID 04/17/22 08/11/22 08/11/22 History insulin aspart U-100 100 unit/mL 5 unit SUBCUT QID 04/17/22 08/11/22 06/06/22 History subcutaneous cartridge (Novolog PenFill U-100 Insulin aspart) lactulose 10 gram/15 mL (15 mL) 15 ml PO TID PRN constipation 1 04/17/22 08/11/22 Unknown Rx oral solution month #315 mL naloxone 4 mg/actuation nasal 4 mg intranasal Q2M PRN overdose 04/17/22 08/11/22 Unknown History spray (Narcan) ondansetron HCl 4 mg tablet 4 mg PO Q8H PRN Nausea 04/17/22 08/11/22 04/30/22 History pen needle, diabetic 31 gauge x 04/17/22 08/11/22 Unknown History 3/16 (TechLITE Pen Needle) polyethylene glycol 3350 17 17 g PO DAILY PRN Constipation 04/17/22 08/11/22 04/30/22 History gram/dose oral powder testosterone cypionate 200 mg/mL 80 mg SUBCUT Q14D 04/17/22 08/11/22 06/04/22 History intramuscular oil zolpidem 10 mg tablet 10 mg PO DAILY PRN Insomnia 04/17/22 08/11/22 04/30/22 History prednisone 5 mg tablet 5 mg PO DAILY 04/29/22 08/11/22 08/11/22 History hydrocortisone 2.5 % topical cream 1 applic AL QID PRN Itching 06/02/22 08/11/22 Unknown History with perineal applicator (Anusol-HC) insulin glargine 100 unit/mL (3 16 unit SUBCUT QAM ##0 06/02/22 08/11/22 08/10/22 History mL) subcutaneous pen (Lantus Solostar U-100 Insulin) diphenhydramine HCl 25 mg capsule 25 mg PO TID PRN allergy symptoms 06/12/22 08/11/22 Unknown Rx (Benadryl) #60 caps hydrocodone 10 mg-acetaminophen 1 tab PO Q4H PRN Pain 7 days #40 06/24/22 08/11/22 Unknown Rx 325 mg tablet tabs fluticasone 250 mcg-salmeterol 50 1 inh inhalation BID 08/11/22 08/11/22 08/10/22 History mcg/dose blistr powdr for inhalation (Advair Diskus) levofloxacin 500 mg tablet 500 mg PO DAILY 08/11/22 08/11/22 Unknown History olopatadine 0.6 % nasal spray 2 spray intranasal BID 08/11/22 08/11/22 Unknown History (Patanase) Allergies Allergy/AdvReac Type Severity Reaction Status Date / Time brexpiprazole Allergy Severe ADR-Halluci Verified 07/22/22 13:03 nating doxycycline Allergy Severe ALGY-Difficulty Verified 07/22/22 13:03 Breathing Iodinated Contrast Media Allergy Severe ALGY-Wheezi Verified 07/22/22 13:03 ng Sulfa (Sulfonamide Allergy Severe ALGY-Difficulty Verified 07/22/22 13:03 Antibiotics) Breathing varenicline Allergy Severe ADR-Halluci Verified 07/22/22 13:03 nating hydralazine Allergy Intermediate ADR-Photose Verified 07/22/22 13:03 nsitivity adhesive tape Allergy Mild ALGY-Rash Uncoded 07/22/22 13:03 PFSH Acute PFSH: Medical History Constipation Diabetic acidosis, type II GERD (gastroesophageal reflux disease) Surgical History Hx of colonoscopy with polypectomy total of 3. Last done 12/2018 at [facility] Hx of hernia repair x2 Inguinal Hx of knee surgery Right side and possibly left side Hx of kyphoplasty Family History Father Cancer Esephageal cancer Mother Cancer Sister Cancer kidney cancer Social History Smoking and tobacco status: former smoker Alcohol intake: current Alcohol intake frequency: holidays/special occasions only Vitals/I&O/Wt Last Vital Signs Temp 98.3 F 08/11/22 12:05 Pulse 78 08/11/22 17:07 Resp 15 08/11/22 12:05 BP 133/81 08/11/22 17:07 Pulse Ox 99 08/11/22 17:07 O2 Del Method Room Air 08/11/22 13:15 Weight last 48 hrs Weight 69.4 kg Physical Exam 2 Const: COMMON NORMALS: patient oriented x3 HENMT: COMMON NORMALS: normocephalic, atraumatic, hearing grossly normal bilaterally and external ears normal HEAD & SCALP: normocephalic and atraumatic EXTERNAL EAR: Yes external ears normal Resp: COMMON NORMALS: normal respiratory effort, No retractions, No use of accessory muscles and clear to auscultation bilaterally EFFORT & INSPECTION: Yes symmetric chest movement AUSCULTATION: clear to auscultation bilaterally Cardio: COMMON NORMALS: regular rate, regular rhythm, S1 normal heart sound present, S2 normal heart sound present, No gallops present (Cardio), No murmurs present (Cardio), No rub (Cardio) and Peripheral pulses 2+ throughout RATE: regular rate RHYTHM: regular rhythm HEART SOUNDS: S1 normal heart sound present and S2 normal heart sound present PERIPHERAL PULSES: Peripheral pulses 2+ throughout GI: COMMON NORMALS: Normal to inspection, nondistended, normoactive bowel sounds present, Soft to palpation, non-tender, No hepatosplenomegaly present and no masses AUSCULTATION: Yes normoactive bowel sounds PALPATION: Yes Soft to palpation and Yes No hepatosplenomegaly present RECTAL EXAM: Yes deferred Back/Pelvis: COMMON NORMALS: no CVA tenderness Extremity: COMMON NORMALS: no clubbing, cyanosis or edema and no pedal edema Neuro: COMMON NORMALS: patient oriented x3 Data 08/11/22 12:03 08/11/22 12:03 A&P Assessment and plan (1) Acute right-sided weakness: (2) Left sided cerebral hemisphere cerebrovascular accident: (3) Diabetes: (4) Hypertension: Plan 56 year old male with PMH of DM ,HTN, CVA ,TIA came in with c/o acute onset of rt facial swelling , rt sided blurred vision, as well as rt sided tingling ,numbness that started around 7 am this morning.Currently he is being managed for. Assessment : Ac CVA : C.T Head without contrast : showed no acute intracranial pathology, head MRA as well as neck MRA failed to show any significant stenosis, Follow 2D ECHO with bubble study to look for possible intra cardiac shunt. Telemetry monitoring, to access for any possible undiagnosed A.Fib, patient will need event monitor on discharge. Permissive HTN Continue Aspirin, plavix , statin Neuro check q4h PT/OT as well Speech on board. Neurology on board. H/O DM : Continue Lantus ,SSI, Monitor FSG H/O CVA/TIA : Plan as 1 Code status : Full code DVT PPX : ON SCDS WELL SC LOVENOX Attestations Medical Necessity Statement*: Patient needs to be in hospital for the management of Ac CVA.Anticipated LOS greater then 2 midnights. Coding Level of Care Code Acute Code for Chg Fwd Diagnoses Acute right-sided weakness R53.1 Left sided cerebral hemisphere cerebrovascular accident I63.9 Diabetes E11.9 Hypertension I10
--- NOTE | 2022-08-11 19:00 | PC.NURSE ---
Report taken from KAVIN Villegas at approximately 1900. Pt was rounded on by this nurse after shift change and pt requested warm blanket. Warm blanket was provided. was at bedside at this time, neither pt nor spouse had any questions or needs at that time.
--- NOTE | 2022-08-11 19:38 | PC.NURSE ---
Called to room by pt . Pt states he wants to be discharged. Asked pt to hold on while I spoke with nurse and MD. Explained to pt that pt had a bed upstairs and that we would be calling report as soon as it was possible. Pt upset that he had taken his BP cuff off and no one had noticed. Pt noted to have a note by RN who spoke with the pt at 1900 and two sets of vitals at 1900 and 1915 that were documented. Pt requested IV to RAC be removed and replaced. 20G IV SL placed to left forearm without complication. Jolie applied considering pt states he cannot have any type of adhesive. and PT both pleased at this time and have no other c/o. They do wish to stay and be admitted. RN and aware.
--- NOTE | 2022-08-11 20:09 | PC.NURSE ---
Report called to KAVIN Magana on Med-Surg.
[2022-08-11] MEDS: nicotine 21 mg Patch 1 PATCH TRANSDERMA (20:51)
[2022-08-11 21:05] LABS: Glucose Point of Care 330 mg/dL (70-110)
[2022-08-12 04:00] VITALS: BP 105/65; PULSE 81; RESP 16; TEMP 36.5; O2SAT 95
[2022-08-12 04:48] LABS: Basophils # 0.1 10^3/uL (0.0-0.1); Basophils % 0.9 %; Eosinophils # 0.2 10^3/uL (0.0-0.8); Eosinophils % 1.9 %; Hematocrit 29.8 % (42.0-52.0); Hemoglobin 8.3 g/dL (11.7-16.6); Lymphocytes # 4.4 10^3/uL (0.8-4.8); Mean Corpuscular HGB Conc 27.9 g/dL (30.0-36.0); Mean Corpuscular Hemoglobin 20.4 pg (28.0-34.0); Mean Corpuscular Volume 73.2 fl (80-94); Mean Platelet Volume 10.3 fL (7.4-10.4); Monocytes # 1.1 10^3/uL (0.2-0.9); Monocytes % 8.5 %; Neutrophils # 6.65 10^3/uL (1.8-7.7); Neutrophils % 53.1 %; Nucleated Red Blood Cells % 0 %; Platelet Count 352 10^3/cmm (130-400); Red Blood Count 4.07 10^6/uL (4.1-5.3); Red Cell Distribution Width 16.5 % (12.1-15.1); White Blood Count 12.5 10^3/uL (4.0-10.0)
[2022-08-12 04:57] LABS: INR 0.97 (0.8-1.2)
[2022-08-12 04:58] LABS: Partial Thromboplastin Time 26.3 SECONDS (23.9-36.7)
[2022-08-12 05:13] VITALS: PULSE 85
[2022-08-12 05:17] LABS: Alanine Aminotransferase 10 U/L (0-41); Albumin Level 3.2 g/dL (3.5-5.2); Alkaline Phosphatase 68 U/L (40-130); Anion Gap 14.6 (5-19); Aspartate Amino Transferase 11 U/L (0-40); Blood Urea Nitrogen 11 mg/dL (6-20); Calcium 8.4 mg/dL (8.5-10.5); Carbon Dioxide 25 mmol/L (22-29); Chloride 103 mmol/L (98-107); Chol HDL Ratio 3.89 mg/dL (1.0-5.00); Cholesterol 105 mg/dL (0-200); Glomerular Filtration Rate 56.7 mL/min (90-130); Glucose 120 mg/dL (65-115); HDL Cholesterol 27 mg/dL (60-100); LDL Cholesterol Calculated 57 mg/dL (50-129); LDL HDL Ratio 2.11 RATIO (0.00-3.22); Osmolality Calculated 289 mOsm/kg (285-295); Phosphorus 3.7 mg/dL (2.5-4.5); Potassium 3.6 mmol/L (3.5-5.1); Sodium 139 mmol/L (136-145); Thyroid Stimulating Hormone 1.56 uIU/mL (0.27-4.20); Total Bilirubin 0.2 mg/dL (0.15-1.2); Total Protein 6.2 g/dL (6.6-8.7); Triglycerides 105 mg/dL (0-150)
[2022-08-12 05:19] LABS: Estmated Average Glucose 148; Hemoglobin A1C 6.8 % (4.0-6.0)
[2022-08-12 05:20] LABS: Creatinine Clr Calc Pharmacy 57.8556
[2022-08-12] MEDS: insulin glargine 100 units/1 mL 16 UNIT SUBCUT (06:13)
[2022-08-12 07:09] LABS: Glucose Point of Care 197 mg/dL (70-110)
[2022-08-12 08:00] VITALS: BP 120/73; PULSE 83; RESP 18; TEMP 36.8; O2SAT 94
[2022-08-12] MEDS: predniSONE 5 mg Tablet PO (08:41)
[2022-08-12] MEDS: pantoprazole DR 40 mg Tablet PO (08:41)
[2022-08-12] MEDS: clopidogrel 75 mg Tablet PO (08:41)
[2022-08-12] MEDS: atorvastatin 40 mg Tablet PO (08:41)
[2022-08-12] MEDS: aspirin 81 mg EC Tablet PO (08:41)
[2022-08-12] MEDS: insulin lispro 100 unit/1 mL SUBCUT ×2 (08:41→11:36)
[2022-08-12] MEDS: ketorolac 30 mg/mL INJ IVP (09:30)
--- NOTE | 2022-08-12 10:29 | PC.CHAP ---
Pastoral Care Encounter/Spiritual Assessment Type of Contact [] Declined housekeeping cleaner visit [] Patient/Family/Request visit [] Outpatient visit [] Follow-up visit [] Physician referral [] Code/Alert [x] Routine visit [] Staff referral [] Actively dying [] Patient sleeping [x] Family support [] [] Out of room [] Palliative care [] [] Receiving care in room [] Pre-surgical visit [] Trauma [] Long length of stay [] ICU visit [] Other: Relational/Emotional Strength [x] Patient feels connected with others/family/visitors/staff [] Distress [] Loneliness/isolation [] Abandonment Spirituality of Patient [x] Person of Yue [] Attends Latter-Day of their Yue [x] Believes in Prayer [] Reads Bible or Christianity materials [] There are Spiritual issues to be addressed Hotel Attendant Interventions [x] Prayer [x] Active listening [] Non-anxious presence [x] Spiritual/emotional support [] Crisis/trauma care [] Spiritual counseling [] Bereavement support [] Provided bereavement packet [] Provided Bible/devotional materials [] Provided toy/stuffed animal, coloring book to patient or family member [] Provided Communion [] Anointing/[place] [] Salvation [x] Completed spiritual assessment [] Other: Impact on Illness or Injury [] Angry [] Fearful [] Anxious [] Often cries [] Exhaustion [] Unable to work [] Unable to attend cheondoism [] Unable to walk/stand [] Unable to read [] Unable to drive [] Unable to eat/drink [] Unable to sleep [] Unable to be with family [] Patient intubated [] Other: Summary Time spent with patient 5 min
[2022-08-12 11:00] LABS: Glucose Point of Care 157 mg/dL (70-110)
[2022-08-12 12:00] VITALS: BP 136/78; PULSE 91; RESP 17; TEMP 36.7; O2SAT 96
--- NOTE | 2022-08-12 13:34 | P.DS_ITS ---
Discharge Providers Date of Admission: 08/11/22 18:11 Date of Discharge: August 12, 2022 Attending Provider at Admission: Gerber Bautista MD Attending Provider at Discharge: Gerber Bautista MD Primary Care Provider: Opal Felipe DO Diagnoses at Discharge Discharge Diagnosis (1) Acute right-sided weakness: Status: Acute (2) Left sided cerebral hemisphere cerebrovascular accident: Status: Acute (3) Diabetes: Status: Acute (4) Hypertension: Status: Acute Reason for Visit Reason for Visit: facial numbness, tingling, slurred speech Hospital Course Hospital Course Coy Gutierrez is a 56 year old male with PMH of DM ,HTN, CVA ,TIA came in with c/o acute onset of rt facial swelling , rt sided blurred vision, as well as rt sided tingling ,numbness that started around 7 am this morning, patient initially was reluctant to come to the hospital but later his drove him to the hospital en route patient was also confused,he arrived in the ER at around 11:50 am at that time he was out of tpa window, imaging srudies were done for possible thrombectomy, which was negative for any significant stenosis.Upon arrival patient reported : blurred vision in the right eye and he had a drift in the right upper extremity and decreased sensation in a V3 distribution in the right lower face.? NIH score = 3 C.T Head without contrast : showed no acute intracranial pathology, head MRA as well as neck MRA failed to show any significant stenosis,patient was admitted for the management of Ac CVA. He was kept on stroke protocol, was given aspirin Plavix, statin, permissive hypertension, PT evaluation, speech evaluation was done, frequent neurochecks ,2D echo was done with bubble study: Which failed to show any intracardiac shunt , Normal left ventricular size, systolic function and wall ?thickness, with no regional wall motion abnormalities. Left?ventricular ejection fraction is estimated at 65 %. Normal diastolic function.No significant valvular abnormality. Telemetry monitoring failed to show any significant arrhythmia. At the time of discharge there was no significant neurological deficit, right eye blurred vision, had significantly improved, patient was discharged on 1 month event monitor, overall he responded well to above medical management, he will follow neurology as outpatient. Physical Exam Const: COMMON NORMALS: patient oriented x3 HENMT: COMMON NORMALS: normocephalic, atraumatic, hearing grossly normal bilaterally and external ears normal HEAD & SCALP: normocephalic and atraumatic EXTERNAL EAR: Yes external ears normal Resp: COMMON NORMALS: normal respiratory effort, No retractions, No use of accessory muscles and clear to auscultation bilaterally EFFORT & INSPECTION: Yes symmetric chest movement AUSCULTATION: clear to auscultation bilaterally Cardio: COMMON NORMALS: regular rate, regular rhythm, S1 normal heart sound present, S2 normal heart sound present, No gallops present (Cardio), No murmurs present (Cardio), No rub (Cardio) and Peripheral pulses 2+ throughout RATE: regular rate RHYTHM: regular rhythm HEART SOUNDS: S1 normal heart sound present and S2 normal heart sound present PERIPHERAL PULSES: Peripheral pulses 2+ throughout GI: COMMON NORMALS: Normal to inspection, nondistended, normoactive bowel sounds present, Soft to palpation, non-tender, No hepatosplenomegaly present and no masses AUSCULTATION: Yes normoactive bowel sounds PALPATION: Yes Soft to palpation and Yes No hepatosplenomegaly present RECTAL EXAM: Yes deferred Extremity: COMMON NORMALS: no clubbing, cyanosis or edema and no pedal edema Neuro: COMMON NORMALS: patient oriented x3 Discharge Data Studies Completed and Pending Completed Studies During Hospitalization Category Date Time Status CT head thrombolytic 10205 Stat Cat Scan 08/11/22 12:02 Completed MRA head [MR angio head wo con [id number]] Stat MRI 08/11/22 12:34 Completed MRA neck [MR angio neck w con* [id number]] Stat MRI 08/11/22 12:34 Completed CV. echo w/w bubble cont [id number] Routine Ultrasound 08/11/22 18:14 Completed Pending at discharge Category Date Time Status Complete Blood Count w/Auto AM LABS Lab 08/13/22 04:00 Ordered Complete Blood Count w/Auto AM LABS Lab 08/14/22 04:00 Ordered Comprehensive Metabolic Panel AM LABS Lab 08/13/22 04:00 Ordered Comprehensive Metabolic Panel AM LABS Lab 08/14/22 04:00 Ordered Radiology Impressions Head CT 08/11/22 12:02 IMPRESSION: 1. No evidence of intracranial hemorrhage or mass effect. 2. Minimal small vessel changes. Mild parenchymal volume loss in several areas. 3. Vascular calcification. 4. No acute intracranial findings. Notified Tiara Cobos MD at 08/11/2022 12:17 PM. Head MRA 08/11/22 12:34 IMPRESSION: Normal MRA [place]. Hypoplastic LEFT P-comm. Normal variant. Neck MRA 08/11/22 12:34 IMPRESSION: No stenosis or occlusion. REFERENCES: NASCET CRITERIA. The degree of stenosis in the cervical segment of the internal carotid artery is based on NASCET criteria. Normal is no stenosis. Mild is less than 50% stenosis. Moderate is 50-69% stenosis. Severe is 70% to 99% stenosis. Total occlusion is no detectable patent lumen. Laboratory Results WBC 12.5 10^3/uL (4.0-10.0) H 08/12/22 04:05 RBC 4.07 10^6/uL (4.1-5.3) L 08/12/22 04:05 Hgb 8.3 g/dL (11.7-16.6) L 08/12/22 04:05 Hct 29.8 % (42.0-52.0) L 08/12/22 04:05 MCV 73.2 fl (80-94) L 08/12/22 04:05 MCH 20.4 pg (28.0-34.0) L 08/12/22 04:05 MCHC 27.9 g/dL (30.0-36.0) L 08/12/22 04:05 RDW 16.5 % (12.1-15.1) H 08/12/22 04:05 Plt Count 352 10^3/cmm (130-400) 08/12/22 04:05 MPV 10.3 fL (7.4-10.4) 08/12/22 04:05 Neut % (Auto) 53.1 % 08/12/22 04:05 Lymph % (Auto) 35.0 % 08/12/22 04:05 [place] % (Auto) 8.5 % 08/12/22 04:05 Eos % (Auto) 1.9 % 08/12/22 04:05 Baso % (Auto) 0.9 % 08/12/22 04:05 Neut # (Auto) 6.65 10^3/uL (1.8-7.7) 08/12/22 04:05 Lymph # (Auto) 4.4 10^3/uL (0.8-4.8) 08/12/22 04:05 [place] # (Auto) 1.1 10^3/uL (0.2-0.9) H 08/12/22 04:05 Eos # (Auto) 0.2 10^3/uL (0.0-0.8) 08/12/22 04:05 Baso # (Auto) 0.1 10^3/uL (0.0-0.1) 08/12/22 04:05 Nucleated RBC % (auto) 0 % 08/12/22 04:05 Nucleated RBCs # 0.0 /100WBC 08/12/22 04:05 PT 13.20 SECONDS (12.1-14.9) 08/12/22 04:05 INR 0.97 (0.8-1.2) 08/12/22 04:05 APTT 26.3 SECONDS (23.9-36.7) 08/12/22 04:05 Sodium 139 mmol/L (136-145) 08/12/22 04:05 Potassium 3.6 mmol/L (3.5-5.1) 08/12/22 04:05 Chloride 103 mmol/L (98-107) 08/12/22 04:05 Carbon Dioxide 25 mmol/L (22-29) 08/12/22 04:05 Anion Gap 14.6 (5-19) 08/12/22 04:05 BUN 11 mg/dL (6-20) 08/12/22 04:05 Creatinine 1.3 mg/dL (0.7-1.2) H 08/12/22 04:05 GFR Calculation 56.7 mL/min (90-130) L 08/12/22 04:05 Glucose 120 mg/dL (65-115) H 08/12/22 04:05 POC Glucose 157 mg/dL (70-110) H 08/12/22 10:52 Estimat Average Glucose 148 08/12/22 04:05 Hemoglobin A1c 6.8 % (4.0-6.0) H 08/12/22 04:05 Calculated Osmolality 289 mOsm/kg (285-295) 08/12/22 04:05 Calcium 8.4 mg/dL (8.5-10.5) L 08/12/22 04:05 Phosphorus 3.7 mg/dL (2.5-4.5) 08/12/22 04:05 Magnesium 2.0 mg/dL (1.7-2.3) 08/12/22 04:05 Total Bilirubin 0.2 mg/dL (0.15-1.2) 08/12/22 04:05 AST 11 U/L (0-40) 08/12/22 04:05 ALT 10 U/L (0-41) 08/12/22 04:05 Alkaline Phosphatase 68 U/L (40-130) 08/12/22 04:05 Total Protein 6.2 g/dL (6.6-8.7) L D 08/12/22 04:05 Albumin 3.2 g/dL (3.5-5.2) L 08/12/22 04:05 Globulin 3.0 g/dL (1.3-4.6) 08/12/22 04:05 Triglycerides 105 mg/dL (0-150) 08/12/22 04:05 Cholesterol 105 mg/dL (0-200) 08/12/22 04:05 LDL Cholesterol, Calc 57 mg/dL (50-129) 08/12/22 04:05 HDL Cholesterol 27 mg/dL (60-100) L 08/12/22 04:05 LDL/HDL Ratio 2.11 RATIO (0.00-3.22) 08/12/22 04:05 Cholesterol/HDL Ratio 3.89 mg/dL (1.0-5.00) 08/12/22 04:05 TSH 1.56 uIU/mL (0.27-4.20) 08/12/22 04:05 Urine Color Straw (Yellow) 08/11/22 17:30 Urine Appearance Clear (CLEAR) 08/11/22 17:30 Urine pH 5 (5-7) 08/11/22 17:30 Ur Specific [place] 1.005 (1.005-1.030) 08/11/22 17:30 Urine Protein Neg (Negative) 08/11/22 17:30 Urine Glucose (UA) Norm (Normal) 08/11/22 17:30 Urine Ketones Negative (Negative) 08/11/22 17:30 Urine Blood Neg (Negative) 08/11/22 17:30 Urine Nitrate Negative (Negative) 08/11/22 17:30 Urine Bilirubin Neg (Negative) 08/11/22 17:30 Urine Urobilinogen Norm mg/dL (Negative) 08/11/22 17:30 Ur Leukocyte Esterase Negative (Negative) 08/11/22 17:30 Vitals Last Vital Signs Temp 98.1 F 08/12/22 12:00 Pulse 91 08/12/22 12:00 Resp 17 08/12/22 12:00 BP 136/78 08/12/22 12:00 Pulse Ox 96 08/12/22 12:00 O2 Del Method Room Air 08/12/22 12:00 Discharge Plan Discharge Patient Disposition: Home Condition: Stable Prescriptions: Continued diphenhydramine HCl [Benadryl] 25 mg capsule 25 mg PO TID PRN (Reason: allergy symptoms) Qty: 60 0RF lactulose 10 gram/15 mL (15 mL) solution 15 ml PO TID PRN (Reason: constipation) 30 Days Qty: 315 2RF glycopyrrolate 1 mg tablet 1 mg PO TID albuterol sulfate 90 mcg/actuation HFA aerosol inhaler 1 inh inhalation QID PRN (Reason: Shortness Of Breath) zolpidem 10 mg tablet 10 mg PO DAILY PRN (Reason: Insomnia) Breztri Aerosphere 160-9-4.8 mcg/actuation HFA aerosol inhaler 2 inh inhalation BID ondansetron HCl 4 mg tablet 4 mg PO Q8H PRN (Reason: Nausea) furosemide 20 mg tablet 20 mg PO DAILY insulin aspart U-100 [Novolog PenFill U-100 Insulin] 100 unit/mL cartridge 5 unit SUBCUT QID testosterone cypionate 200 mg/mL oil 80 mg SUBCUT Q14D azelastine 137 mcg (0.1 %) aerosol,spray 1 spray intranasal BID Rx Instructions: administer into each nostril (DME) pen needle, diabetic [TechLITE Pen Needle] 31 gauge x 3/16 needle See Rx Instructions .Route Rx Instructions: As directed amlodipine 10 mg tablet 10 mg PO DAILY PRN (Reason: Blood Pressure) carvedilol 3.125 mg tablet 3.125 mg PO BID PRN (Reason: heartrate) Rx Instructions: must administer with a meal/food esomeprazole magnesium 40 mg capsule,delayed release(DR/EC) 40 mg PO DAILY ergocalciferol (vitamin D2) 1,250 mcg (50,000 unit) capsule 1,250 mcg PO Q30D atorvastatin 40 mg tablet 40 mg PO DAILY clopidogrel 75 mg tablet 75 mg PO DAILY Hold Instructions: Resume on 05/04/22. aspirin 81 mg tablet,delayed release (DR/EC) 81 mg PO DAILY polyethylene glycol 3350 17 gram/dose powder 17 g PO DAILY PRN (Reason: Constipation) naloxone [Narcan] 4 mg/actuation spray,non-aerosol 4 mg intranasal Q2M PRN (Reason: overdose) Rx Instructions: spray 1 dose into ONE nostril; alternate nostrils w each dose until help arrives hydrocodone-acetaminophen 10-325 mg tablet 1 tab PO Q4H PRN (Reason: Pain) 7 Days Qty: 40 0RF prednisone 5 mg Tablet 5 mg PO DAILY hydrocortisone [Anusol-HC] 2.5 % cream with perineal applicator 1 applic [place] QID PRN (Reason: Itching) Rx Instructions: may repeat in 10 days insulin glargine [Lantus Solostar U-100 Insulin] 100 unit/mL (3 mL) Insulin Pen 16 unit SUBCUT QAM Qty: 0 Advair Diskus 250-50 mcg/dose Blister With Device 1 inh INHALATION BID Patanase 0.6 % [place],Non-Aerosol 2 spray INTRANASAL BID Discontinued levofloxacin [Levaquin] 500 mg Tablet 500 mg PO DAILY Rx Instructions: x 7 days Discharge Orders: Discharge Order (Routine); Ordered 08/12/22 Ordered By: Gerber Bautista Other Ambulatory Orders: MCT/Event Monitor 30 Days (Routine) Timeframe: 1 Week Facility: [facility] - Location: Radiology Ordered By: Gerber Bautista Referrals: Sy Richards MD [Physician] - 09/17/22 11:00 am Opal Felipe DO [Primary Care Provider] - 08/13/22 11:20 am Patient Instructions: Opioid Safety, Stroke Stoplight Activity Restrictions/Additional Instructions: APPOINTMENT FOR 30 DAY [facility] ON AUGUST [facility] AT 11:00 Discharge Attestations Time Spent in Discharge Care*: less than 30 min Quality Metrics Clinical Quality Measures [ No reported AMI, CVA or VTE this stay] Coding Level of Care Code Acute Code for Chg Fwd Diagnoses Acute right-sided weakness R53.1 Left sided cerebral hemisphere cerebrovascular accident I63.9 Diabetes E11.9 Hypertension I10
[2022-08-12 15:03] VITALS: BP 136/78; PULSE 91; RESP 17; TEMP 36.7; O2SAT 96
== END 2022-08-12 14:55 | disposition home or self-care (01) | DRG 65 ==
LOC: ER 17:20 → MEDSURG 18:45
PROVIDERS: Admitting Provider Internal Medicine; Emergency Provider Family Medicine; PCP Family Medicine; Visit Provider Internal Medicine
DX: I63.9 Cerebral infarction, unspecified (principal); G81.91 Hemiplegia, unspecified affecting right dominant side; R29.703 NIHSS score 3; E78.5 Hyperlipidemia, unspecified; E11.9 Type 2 diabetes mellitus without complications; Z79.4 Long term (current) use of insulin; K21.9 Gastro-esophageal reflux disease without esophagitis; Z87.891 Personal history of nicotine dependence; Z91.041 Radiographic dye allergy status; Z86.73 Personal history of transient ischemic attack (TIA), and cerebral infarction without residual deficits; J44.9 Chronic obstructive pulmonary disease, unspecified; Z79.02 Long term (current) use of antithrombotics/antiplatelets; Z79.82 Long term (current) use of aspirin; Z79.891 Long term (current) use of opiate analgesic; Z98.1 Arthrodesis status; I10 Essential (primary) hypertension
CPT/HCPCS: 36415; 36416; 70450; 70544; 70548; 80053; 80061; 81003; 82962; 83036; 83735; 84100; 84443; 85025; 85610; 85730; 92523; 92610; 93005; 96361; 96372; 96374; 96375; 97161; 99285; A9577; C8929; J1815; J1885; J2060; J7512

== ENCOUNTER → 2022-08-26 13:07 | Outpatient (BNVA) | payer MEDICAID, SELFPAY | PROVIDERS: PCP Family Medicine; Visit Provider Orthopaedic Surgery | DX: Z98.1 Arthrodesis status (principal) | CPT/HCPCS: 72040; 99024 ==

== ENCOUNTER → 2022-09-04 16:39 | Outpatient (BNVA) | payer MEDICAID, SELFPAY | PROVIDERS: PCP Family Medicine; Visit Provider Surgery | DX: Z09 Encounter for follow-up examination after completed treatment for conditions other than malignant neoplasm (principal); R10.11 Right upper quadrant pain | CPT/HCPCS: 99212 ==

== ENCOUNTER → 2022-09-17 10:25 | Outpatient (BNVA) | payer MEDICAID, SELFPAY | PROVIDERS: PCP Family Medicine; Visit Provider Psychiatry & Neurology Neurology | DX: I69.398 Other sequelae of cerebral infarction (principal); R20.0 Anesthesia of skin; H54.61 Unqualified visual loss, right eye, normal vision left eye; Z98.890 Other specified postprocedural states; I10 Essential (primary) hypertension; Z87.891 Personal history of nicotine dependence; J44.9 Chronic obstructive pulmonary disease, unspecified; E11.9 Type 2 diabetes mellitus without complications; Z79.4 Long term (current) use of insulin | CPT/HCPCS: 99213 ==

== ENCOUNTER → 2022-09-23 14:51 | Outpatient (BNVA) | payer MEDICAID, SELFPAY | PROVIDERS: PCP Family Medicine; Referring Provider Family Medicine; Visit Provider Dermatology | DX: D04.61 Carcinoma in situ of skin of right upper limb, including shoulder (principal); D22.5 Melanocytic nevi of trunk; L82.1 Other seborrheic keratosis; L82.0 Inflamed seborrheic keratosis; D22.61 Melanocytic nevi of right upper limb, including shoulder; L57.0 Actinic keratosis; Z85.820 Personal history of malignant melanoma of skin; Z87.891 Personal history of nicotine dependence | CPT/HCPCS: 11102; 11103; 17000; 17003; 17110; 99203 ==

== ENCOUNTER → 2022-10-07 14:07 | Outpatient (BNVA) | payer MEDICAID, SELFPAY | PROVIDERS: PCP Family Medicine; Visit Provider Physician Assistant | DX: E11.40 Type 2 diabetes mellitus with diabetic neuropathy, unspecified; I73.9 Peripheral vascular disease, unspecified; L60.3 Nail dystrophy; Z79.4 Long term (current) use of insulin; Z98.1 Arthrodesis status; M47.814 Spondylosis without myelopathy or radiculopathy, thoracic region | CPT/HCPCS: 72072; 99203; 99213 ==

== ENCOUNTER → 2022-10-14 11:15 | Outpatient (BNVA) | payer MEDICAID, SELFPAY | PROVIDERS: PCP Family Medicine; Visit Provider Dermatology | DX: D04.61 Carcinoma in situ of skin of right upper limb, including shoulder (principal) | CPT/HCPCS: 17272 ==

== ENCOUNTER 2022-10-16 08:29 | Outpatient (CLI) | payer MEDICAID, SELFPAY ==
--- NOTE | 2022-10-16 08:45 | MR_ITS ---
WS: [id number] MRI BRAIN WITHOUT CONTRAST HISTORY: I63.9 - Cerebral infarction, unspecified COMPARISON: CT 08/11/2022. TECHNIQUE: Diffusion imaging, multiplanar T1, T2 and FLAIR imaging obtained. No evidence for acute infarct or hemorrhage. Goldstein-white matter differentiation is normal. Mild bilateral symmetric atrophy. No prior infarct or lacunar infarcts. Very minimal small vessel isc hemic disease in the [place], right greater than left. No supratentorial white matter disease is evident . No hemorrhage or hemosiderin. Ventricles and extra-axial spaces are normal. No intra displacement the cerebellar tonsils. Increased CSF in the sella [place]. The pituitary gland is noted within the floor of the sella consistent with an empty sella [place]. 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 Dural venous sinuses and [place] demonstrate no abnormality on this unenhanced studies. Paranasal sinuses: Clear. Mastoid air cells: Normal. Calvarium and scalp: Intact. IMPRESSION: 1. No acute infarct or hemorrhage. 2. Mild atrophy with no large territory infarct. 3. Minimal small vessel ischemic disease, right greater than left in the [place].
== END 2022-10-16 08:30 | disposition home or self-care (01) ==
LOC: RAD 08:29
PROVIDERS: PCP Family Medicine; Visit Provider Specialist
DX: I63.9 Cerebral infarction, unspecified (principal); H53.8 Other visual disturbances; R20.0 Anesthesia of skin; Z86.73 Personal history of transient ischemic attack (TIA), and cerebral infarction without residual deficits; Z98.890 Other specified postprocedural states; H54.61 Unqualified visual loss, right eye, normal vision left eye
CPT/HCPCS: 70551

== ENCOUNTER 2022-10-22 14:04 | Outpatient (CLI) | payer MEDICAID, SELFPAY ==
--- NOTE | 2022-10-22 14:30 | MR_ITS ---
WS: [id number] MRI THORACIC SPINE WITHOUT CONTRAST TECHNIQUE: Sagittal T1, T2 and STIR imaging. Axial T2 imaging. Noncontrast imaging obtained. CLINICAL INFORMATION: increased pain post op cervical fusion COMPARISON: None. FINDINGS: Mild thoracic curve. Mild thoracic kyphosis. Mild chronic appearing compression superior endplate L1. This is unchanged since 05/12/2022. Small disc protrusions more prominent at T6-T7 T7-T8 and T8-T9. No significant central canal stenosis. Small right greater than left foraminal protrusions T10-11 with mild to moderate right T10-11 foraminal narrowing. Mild left T11-12 foraminal narrowing. Mild right T4-5 bony foraminal narrowing. Tiny central protrusi on T8-T9 slightly contacts the thoracic cord. Tiny syrinx or prominent central canal in the thoracic cord extending distally. Cord signal is otherwise normal. Adrenal glands are normal. Normal caliber thoracic aorta. Prior postoperative changes cervical spine fusion. IMPRESSION: * Mild thoracic curve. Mild thoracic kyphosis. No acute compression. No high-grade central canal [place] nosis. * Chronic compression superior endplate L1. No acute appearing compression fractures. * Tiny shallow central protrusions at T6-T8 with slight contact of the thoracic cord at T8-T9. * Tiny syrinx or prominent central canal in the thoracic cord at the T8 level extending distally. Co rd signal is otherwise normal. * Right foraminal protrusion T10-11 slightly impinges the exiting right T10 nerve root. * Otherwise mild foraminal narrowing described above.
== END 2022-10-22 14:05 | disposition home or self-care (01) ==
LOC: RAD 14:05
PROVIDERS: PCP Family Medicine; Visit Provider Physician Assistant
DX: M40.204 Unspecified kyphosis, thoracic region (principal); Z98.1 Arthrodesis status; M51.24 Other intervertebral disc displacement, thoracic region; M48.04 Spinal stenosis, thoracic region; M54.2 Cervicalgia; M47.814 Spondylosis without myelopathy or radiculopathy, thoracic region; M48.56XD Collapsed vertebra, not elsewhere classified, lumbar region, subsequent encounter for fracture with routine healing; X58.XXXD Exposure to other specified factors, subsequent encounter
CPT/HCPCS: 72146; 99204

== ENCOUNTER 2022-11-03 06:12 | Day surgery (SDC) | payer MEDICAID, SELFPAY ==
[2022-10-31 10:47] VITALS: BMI 25.8
[2022-11-03] VITALS (12 sets, daily range): BP systolic 109–175; BP diastolic 75–101; PULSE 78–119; RESP 14–28; TEMP 36.2–36.7; O2SAT 86–100
--- NOTE | 2022-11-03 06:55 | PM.HP ---
Providers/Chief Complaint Primary Care Provider: Opal Felipe DO Chief Complaint: 39537, R10.11 History of Present Illness Coy Gutierrez is a 57 year old male Medications/Allergies Home Medications Medication Instructions Recorded Confirmed Last Taken Type albuterol sulfate 90 mcg/actuation 1 inh inhalation QID PRN Shortness 04/17/22 10/31/22 04/30/22 History aerosol inhaler Of Breath amlodipine 10 mg tablet 10 mg PO DAILY PRN Blood Pressure 04/17/22 11/03/22 10/28/22 History aspirin 81 mg tablet,delayed 81 mg PO DAILY 04/17/22 10/31/22 10/28/22 History release atorvastatin 40 mg tablet 40 mg PO DAILY 04/17/22 10/31/22 10/28/22 History azelastine 137 mcg (0.1 %) nasal 1 spray intranasal BID 04/17/22 10/31/22 11/02/22 History spray aerosol budesonide 160 mcg-glycopyr 9 2 inh inhalation BID 04/17/22 10/31/22 10/28/22 History mcg-formot 4.8 mcg/actuation HFA inhaler (Breztri Aerosphere) carvedilol 3.125 mg tablet 3.125 mg PO BID PRN heartrate 04/17/22 11/03/22 06/08/22 History clopidogrel 75 mg tablet 75 mg PO DAILY 04/17/22 10/31/22 10/28/22 History ergocalciferol (vitamin D2) 1,250 1,250 mcg PO Q30D 04/17/22 10/31/22 06/08/22 History mcg (50,000 unit) capsule esomeprazole magnesium 40 mg 40 mg PO DAILY 04/17/22 10/31/22 11/02/22 History capsule,delayed release furosemide 20 mg tablet 20 mg PO DAILY 04/17/22 10/31/22 10/28/22 History glycopyrrolate 1 mg tablet 1 mg PO TID 04/17/22 10/31/22 10/28/22 History insulin aspart U-100 100 unit/mL 5 unit SUBCUT QID 04/17/22 10/31/22 10/28/22 History subcutaneous cartridge (Novolog PenFill U-100 Insulin aspart) lactulose 10 gram/15 mL (15 mL) 15 ml PO TID PRN constipation 1 04/17/22 10/31/22 Unknown Rx oral solution month #315 mL naloxone 4 mg/actuation nasal 4 mg intranasal Q2M PRN overdose 04/17/22 10/31/22 Unknown History spray (Narcan) ondansetron HCl 4 mg tablet 4 mg PO Q8H PRN Nausea 04/17/22 10/31/22 04/30/22 History pen needle, diabetic 31 gauge x 04/17/22 10/22/22 Unknown History 3/16 (TechLITE Pen Needle) polyethylene glycol 3350 17 17 g PO DAILY PRN Constipation 04/17/22 10/31/22 04/30/22 History gram/dose oral powder testosterone cypionate 200 mg/mL 80 mg SUBCUT Q14D 04/17/22 10/31/22 06/04/22 History intramuscular oil zolpidem 10 mg tablet 10 mg PO DAILY PRN Insomnia 04/17/22 10/31/22 04/30/22 History prednisone 5 mg tablet 5 mg PO DAILY 04/29/22 10/31/22 10/31/22 History hydrocortisone 2.5 % topical cream 1 applic [place] QID PRN Itching 06/02/22 10/31/22 Unknown History with perineal applicator (Anusol-HC) insulin glargine 100 unit/mL (3 16 unit SUBCUT QAM ##0 06/02/22 10/31/22 10/28/22 History mL) subcutaneous pen (Lantus Solostar U-100 Insulin) diphenhydramine HCl 25 mg capsule 25 mg PO TID PRN allergy symptoms 06/12/22 10/31/22 Unknown Rx (Benadryl) #60 caps hydrocodone 10 mg-acetaminophen 1 tab PO Q4H PRN Pain 7 days #40 06/24/22 10/31/22 11/02/22 Rx 325 mg tablet tabs fluticasone 250 mcg-salmeterol 50 1 inh inhalation BID 08/11/22 10/31/22 10/28/22 History mcg/dose blistr powdr for inhalation (Advair Diskus) olopatadine 0.6 % nasal spray 2 spray intranasal BID 08/11/22 10/31/22 10/31/22 History (Patanase) duloxetine 30 mg capsule,delayed 30 mg PO DAILY #30 caps 08/16/23 08/25/23 08/22/23 Rx release (Cymbalta) gabapentin 300 mg capsule 300 mg PO TID pain #90 caps 10/22/22 10/31/22 10/28/22 Rx Allergies Allergy/AdvReac Type Severity Reaction Status Date / Time brexpiprazole Allergy Severe ADR-Halluci Verified 10/22/22 08:15 nating doxycycline Allergy Severe ALGY-Difficulty Verified 10/22/22 08:15 Breathing Iodinated Contrast Media Allergy Severe ALGY-Wheezi Verified 10/22/22 08:15 ng Sulfa (Sulfonamide Allergy Severe ALGY-Difficulty Verified 10/22/22 08:15 Antibiotics) Breathing varenicline Allergy Severe ADR-Halluci Verified 10/22/22 08:15 nating hydralazine Allergy Intermediate ADR-Photose Verified 10/22/22 08:15 nsitivity adhesive tape Allergy Mild ALGY-Rash Uncoded 10/22/22 08:15 PFSH Acute PFSH: Medical History Acute right-sided weakness Constipation Diabetes Diabetic acidosis, type II GERD (gastroesophageal reflux disease) Hypertension Left sided cerebral hemisphere cerebrovascular accident Surgical History Hx of colonoscopy with polypectomy total of 3. Last done 12/2018 at [facility] Hx of hernia repair x2 Inguinal Hx of knee surgery Right side and possibly left side Hx of kyphoplasty Family History Father Cancer Esephageal cancer Mother Cancer Sister Cancer kidney cancer Social History Smoking and tobacco status: former smoker Alcohol intake: current Alcohol intake frequency: holidays/special occasions only Vitals/I&O/Wt Last Vital Signs Temp 97.4 F L 11/03/22 06:34 Pulse 78 11/03/22 06:34 Resp 18 11/03/22 06:34 BP 109/75 11/03/22 06:34 Pulse Ox 100 11/03/22 06:34 O2 Del Method Room Air 11/03/22 06:35 A&P Assessment and plan (1) Right upper quadrant pain: Plan Laparoscopic cholecystectomy The risks and benefits of the procedure, including but not limited to, bleeding, infection, scar, numbness, pain, damage to surrounding structures, damage to common bile duct requiring additional surgery, conversion to an open procedure, were explained to the patient. He is understanding of the risks and wishes to proceed. He also understands that there is a 20 to 30% chance that cholecystectomy will not bring relief of his symptoms. He was to proceed. Attestations Medical Necessity Statement*: Home Coding Level of Care Code Acute Code for Chg Fwd Diagnoses Right upper quadrant pain R10.11
[2022-11-03] MEDS: sodium chloride 0.9% 1,000 ML 30 ML IV (07:13)
[2022-11-03 07:35] LABS: Anion Gap 13.6 (5-19); Blood Urea Nitrogen 11 mg/dL (6-20); Calcium 9.3 mg/dL (8.5-10.5); Carbon Dioxide 25 mmol/L (22-29); Chloride 105 mmol/L (98-107); Creatinine Clr Calc Pharmacy 63.1031; Glucose 87 mg/dL (65-115); Osmolality Calculated 289 mOsm/kg (285-295); Potassium 3.6 mmol/L (3.5-5.1); Sodium 140 mmol/L (136-145)
--- NOTE | 2022-11-03 08:00 | ANES.PREANE2 ---
Pre-Anesthetic Assessment Height/Weight: Height 1.68 m Weight 72.575 kg Temp Pulse Resp BP Pulse Ox O2 Del Method 97.4 F L 78 18 109/75 100 Room Air 11/03/22 06:34 11/03/22 06:34 11/03/22 06:34 11/03/22 06:34 11/03/22 06:34 11/03/22 06:35 Operation Date: 11/03/22 07:55 Proposed Procedures p 06050 lap kenyon R10.11(Not Applicable) - Olvin Duvall DO Familial anesthetic complications: None Was Beta Kenyon taken within 24 hours: Yes Was Clonidine taken within 24 hours: N/A Last intake: Intake Last Liquid Date 11/02/22 Last Liquid Time 22:30 Last Solid Date 11/02/22 Last Solid Time 19:00 Social Tobacco and No alcohol Exam alert, oriented x 3, clear to auscultation bilaterally and regular rate & rhythm Airway Cervical ROM: Other (slightly limited extension d/t plate in cervical neck) Mallampati: Class IV Dentition: other (missing) Comments: Comments: udran Pulmonary Asthma autoimmune lung dz on daily prednisone 5 mg - hasn't taken today, stress dose steroids CV/HEM Hypertension GI Gastroesophageal Reflux Disease Neuropsych Transient Ischemic Attack seizures - last one a month ago Anesthetic Plan ASA status: 3 Anesthesia: General Risk of > 500 ml blood loss (7ml/kg in children): No Medications/Allergies Home Medications Medication Instructions Recorded Confirmed Last Taken Type albuterol sulfate 90 mcg/actuation 1 inh inhalation QID PRN Shortness 04/17/22 10/31/22 04/30/22 History aerosol inhaler Of Breath amlodipine 10 mg tablet 10 mg PO DAILY PRN Blood Pressure 04/17/22 11/03/22 10/28/22 History aspirin 81 mg tablet,delayed 81 mg PO DAILY 04/17/22 10/31/22 10/28/22 History release atorvastatin 40 mg tablet 40 mg PO DAILY 04/17/22 10/31/22 10/28/22 History azelastine 137 mcg (0.1 %) nasal 1 spray intranasal BID 04/17/22 10/31/22 11/02/22 History spray aerosol budesonide 160 mcg-glycopyr 9 2 inh inhalation BID 04/17/22 10/31/22 10/28/22 History mcg-formot 4.8 mcg/actuation HFA inhaler (Breztri Aerosphere) carvedilol 3.125 mg tablet 3.125 mg PO BID PRN heartrate 04/17/22 11/03/22 06/08/22 History clopidogrel 75 mg tablet 75 mg PO DAILY 04/17/22 10/31/22 10/28/22 History ergocalciferol (vitamin D2) 1,250 1,250 mcg PO Q30D 04/17/22 10/31/22 06/08/22 History mcg (50,000 unit) capsule esomeprazole magnesium 40 mg 40 mg PO DAILY 04/17/22 10/31/22 11/02/22 History capsule,delayed release furosemide 20 mg tablet 20 mg PO DAILY 04/17/22 10/31/22 10/28/22 History glycopyrrolate 1 mg tablet 1 mg PO TID 04/17/22 10/31/22 10/28/22 History insulin aspart U-100 100 unit/mL 5 unit SUBCUT QID 04/17/22 10/31/22 10/28/22 History subcutaneous cartridge (Novolog PenFill U-100 Insulin aspart) lactulose 10 gram/15 mL (15 mL) 15 ml PO TID PRN constipation 1 04/17/22 10/31/22 Unknown Rx oral solution month #315 mL naloxone 4 mg/actuation nasal 4 mg intranasal Q2M PRN overdose 04/17/22 10/31/22 Unknown History spray (Narcan) ondansetron HCl 4 mg tablet 4 mg PO Q8H PRN Nausea 04/17/22 10/31/22 04/30/22 History pen needle, diabetic 31 gauge x 04/17/22 10/22/22 Unknown History 316 (TechLITE Pen Needle) polyethylene glycol 3350 17 17 g PO DAILY PRN Constipation 04/17/22 10/31/22 04/30/22 History gram/dose oral powder testosterone cypionate 200 mg/mL 80 mg SUBCUT Q14D 04/17/22 10/31/22 06/04/22 History intramuscular oil zolpidem 10 mg tablet 10 mg PO DAILY PRN Insomnia 04/17/22 10/31/22 04/30/22 History prednisone 5 mg tablet 5 mg PO DAILY 04/29/22 10/31/22 10/31/22 History hydrocortisone 2.5 % topical cream 1 applic MD QID PRN Itching 06/02/22 10/31/22 Unknown History with perineal applicator (Anusol-HC) insulin glargine 100 unit/mL (3 16 unit SUBCUT QAM ##0 06/02/22 10/31/22 10/28/22 History mL) subcutaneous pen (Lantus Solostar U-100 Insulin) diphenhydramine HCl 25 mg capsule 25 mg PO TID PRN allergy symptoms 06/12/22 10/31/22 Unknown Rx (Benadryl) #60 caps hydrocodone 10 mg-acetaminophen 1 tab PO Q4H PRN Pain 7 days #40 06/24/22 10/31/22 11/02/22 Rx 325 mg tablet tabs fluticasone 250 mcg-salmeterol 50 1 inh inhalation BID 08/11/22 10/31/22 10/28/22 History mcg/dose blistr powdr for inhalation (Advair Diskus) olopatadine 0.6 % nasal spray 2 spray intranasal BID 08/11/22 10/31/22 10/31/22 History (Patanase) duloxetine 30 mg capsule,delayed 30 mg PO DAILY #30 caps 10/22/22 10/31/22 10/28/22 Rx release (Cymbalta) gabapentin 300 mg capsule 300 mg PO TID pain #90 caps 10/22/22 10/31/22 10/28/22 Rx Allergies Allergy/AdvReac Type Severity Reaction Status Date / Time brexpiprazole Allergy Severe ADR-Halluci Verified 10/22/22 08:15 nating doxycycline Allergy Severe ALGY-Difficulty Verified 10/22/22 08:15 Breathing Iodinated Contrast Media Allergy Severe ALGY-Wheezi Verified 10/22/22 08:15 ng Sulfa (Sulfonamide Allergy Severe ALGY-Difficulty Verified 10/22/22 08:15 Antibiotics) Breathing varenicline Allergy Severe ADR-Halluci Verified 10/22/22 08:15 nating hydralazine Allergy Intermediate ADR-Photose Verified 10/22/22 08:15 nsitivity adhesive tape Allergy Mild ALGY-Rash Uncoded 10/22/22 08:15 Current Medications Generic Name Dose Route Start Last Admin Trade Name Freq PRN Reason Stop Dose Admin Sodium Chloride 1,000 mls @ 30 mls/hr 08/28/23 06:30 11/03/22 07:13 Sodium Chloride 0.9% IV 11/04/22 06:29 30 mls/hr .Q24H ROSE Administration PFSH Anesthesia Medical History Acute right-sided weakness Constipation Diabetes Diabetic acidosis, type II GERD (gastroesophageal reflux disease) Hypertension Left sided cerebral hemisphere cerebrovascular accident Surgical History Hx of colonoscopy with polypectomy total of 3. Last done 12/2018 at [facility] Hx of hernia repair x2 Inguinal Hx of knee surgery Right side and possibly left side Hx of kyphoplasty Family History Father Cancer Esephageal cancer Mother Cancer Sister Cancer kidney cancer Social History Smoking and tobacco status: former smoker Alcohol intake: current Alcohol intake frequency: holidays/special occasions only Data Anesthesia 11/03/22 06:54 BMP 11/03/22 06:54 Sodium 140 Potassium 3.6 Chloride 105 Carbon Dioxide 25 BUN 11 Creatinine 1.2 Glucose 87 Calcium 9.3 Cardiac Studies: Echocardiogram 08/11/22 Cardiac Event Monitor 08/26/22
[2022-11-03] MEDS: ceFAZolin 2,000 MG in sodium chloride 0.9% (plus) 50 ML 100 MG IV (08:31)
[2022-11-03] MEDS: lidocaine-epi 2% 20 mL INJ INJECTION (08:51)
--- NOTE | 2022-11-03 09:13 | P.OP_ITS ---
Operative Report Date of procedure: November 03, 2022 Pre-op diagnosis: Right upper quadrant syndrome Post-op diagnosis: same Procedure done: Laparoscopic cholecystectomy Specimens removed/disposition: Gallbladder Surgeon: Dr. Olvin Duvall DO Anesthesia: General Estimated blood loss (mL): 5 Complications: None apparent Brief History: This very pleasant 57-year-old gentleman who presented my office with abdominal pain. After a full work-up he was diagnosed with right upper quadrant syndrome. Laparoscopic cholecystectomy was indicated. The risk benefits were explained and documented. Procedure: Patient was wheeled into the operative room and placed on the OR table in a supine position. Abdomen was inspected prepped and draped in usual sterile fashion. Time-out was performed and all present were in agreement. A 15 blade scalp was used to make a stab incision in the left upper quadrant and intra-ab dominal insufflation was achieved using a Veress needle. After localizing the tissue incisions were made and a 5 millimeter trocar was placed into the umbilicus as well as 2 in the right upper quadrant. A 12 millimeter trocar was placed in the epigastrium. Gallbladder was grasped and elevated. The triangle of Calot was carefully dissected using blunt dissection and electrocautery until the triangle of Calot clearly identified. The cystic duct was clipped proximally and double clipped distally. The duct was then ligated proximally. The cystic artery was doubly clipped and ligated. The gallbladder was then removed from the liver bed using electrocautery. The gallbladder was removed from the abdomen using an Endo-Catch bag through the epigastric incision. The liver bed was inspected and no bleeding was seen. The abdomen was irrigated and suctioned. All ports removed. Skin was washed and dried. Incisions were closed with 4-0 Monocryl in a subcuticular interrupted fashion. Skin glue was applied. Patient tolerated the procedure well.
[2022-11-03 09:34] LABS: Glucose Point of Care 92 mg/dL (70-110)
--- NOTE | 2022-11-03 09:38 | SUR.PHASEI ---
0934 PT TO PACU, ORAL AIRWAY IN PLACE. PT SPO2 78%, BAGGING STARTED. PT O2 INCREASED TO 97%.
--- NOTE | 2022-11-03 09:38 | SUR.PHASEI ---
0938 ORAL AIRWAY REMOVED. SPO2 100% ON MASK AT 10L.
[2022-11-03] MEDS: fentaNYL 50 mcg/mL INJ 2mL IVP (09:51)
[2022-11-03] MEDS: HYDROcodone-acetaminophen 10-325 mg Tablet 1 TAB PO (10:35)
--- NOTE | 2022-11-03 10:45 | ANE.PACU2 ---
Inpatient post-anesthesia follow up: Airway intact: Yes Vital signs: Temperature 97.2 F Pulse Rate 86 Respiratory Rate 18 Blood Pressure 115/87 Pulse Oximetry 94 Oxygen Delivery Me thod Room Air Oxygen Flow Rate 5 Fraction of Inspir ed Oxygen Hydration adequate: Yes Nausea and vomiting: No Pain level: 1 Mental status: Baseline
== END 2022-11-03 10:47 | disposition home or self-care (01) ==
PROVIDERS: Anesthesiology; PCP Family Medicine; Visit Provider Surgery
PROC: 0FT44ZZ Resection of Gallbladder, Percutaneous Endoscopic Approach (ICD-10-PCS; CPT 47562; principal; 2022-11-03 07:45)
DX: K81.1 Chronic cholecystitis (principal); D89.89 Other specified disorders involving the immune mechanism, not elsewhere classified; Z79.52 Long term (current) use of systemic steroids; K21.9 Gastro-esophageal reflux disease without esophagitis; Z86.73 Personal history of transient ischemic attack (TIA), and cerebral infarction without residual deficits; Z79.82 Long term (current) use of aspirin; E11.9 Type 2 diabetes mellitus without complications; I10 Essential (primary) hypertension; Z87.891 Personal history of nicotine dependence; Z79.4 Long term (current) use of insulin
CPT/HCPCS: 47562; 36415; 36416; 80048; 82962; 88304; J0330; J0690; J1720; J2250; J2405; J2704; J3010; J3490; J7030

== ENCOUNTER → 2022-11-11 13:00 | Outpatient (BNVA) | payer MEDICAID, SELFPAY | PROVIDERS: PCP Family Medicine; Visit Provider Physician Assistant | DX: M54.6 Pain in thoracic spine (principal); Z96.82 Presence of neurostimulator | CPT/HCPCS: 99213 ==

== ENCOUNTER → 2022-11-12 09:29 | Outpatient (BNVA) | payer MEDICAID, SELFPAY | PROVIDERS: PCP Family Medicine; Visit Provider Anesthesiology Pain Medicine | DX: M54.6 Pain in thoracic spine (principal); M54.2 Cervicalgia | CPT/HCPCS: 20553; 20610; 99214; J1030; J3490 ==

== ENCOUNTER → 2022-11-18 10:07 | Outpatient (BNVA) | payer MEDICAID, SELFPAY | PROVIDERS: PCP Family Medicine; Visit Provider Surgery | DX: R10.9 Unspecified abdominal pain (principal); K21.9 Gastro-esophageal reflux disease without esophagitis; K62.5 Hemorrhage of anus and rectum; Z90.49 Acquired absence of other specified parts of digestive tract | CPT/HCPCS: 99024 ==

== ENCOUNTER → 2022-12-04 11:34 | Outpatient (BNVA) | payer MEDICAID, SELFPAY | PROVIDERS: PCP Family Medicine; Visit Provider Psychiatry & Neurology Neurology | DX: I69.351 Hemiplegia and hemiparesis following cerebral infarction affecting right dominant side (principal); I10 Essential (primary) hypertension; Z87.891 Personal history of nicotine dependence | CPT/HCPCS: 99212 ==

== ENCOUNTER → 2023-04-28 08:50 | Outpatient (BNVA) | payer MEDICAID, SELFPAY | PROVIDERS: PCP Family Medicine; Visit Provider Nurse Practitioner Family | DX: L57.8 Other skin changes due to chronic exposure to nonionizing radiation (principal); L81.4 Other melanin hyperpigmentation; L57.0 Actinic keratosis; L72.0 Epidermal cyst; Z86.007 Personal history of in-situ neoplasm of skin | CPT/HCPCS: 17000; 99213 ==

== ENCOUNTER → 2023-10-30 09:39 | Outpatient (BNVA) | payer MEDICAID, SELFPAY | PROVIDERS: PCP Family Medicine; Visit Provider Nurse Practitioner Family | DX: D48.5 Neoplasm of uncertain behavior of skin (principal); L57.8 Other skin changes due to chronic exposure to nonionizing radiation; L81.4 Other melanin hyperpigmentation; L57.0 Actinic keratosis; L72.0 Epidermal cyst | CPT/HCPCS: 11102; 17000; 99214 ==

== ENCOUNTER 2023-11-26 09:22 | Emergency (ER) | payer MEDICAID, SELFPAY ==
--- NOTE | 2023-11-26 09:28 | XR_ITS ---
WS: [id number] Portable AP upright chest, 11/26/2023 Clinical Data: Weakness Comparison: PA chest, 03/25/2022 Findings: No nodules, masses or effusions are seen. The heart is normal. The pulmonary vascularity is not increased. No pneumonia or pneumothorax is seen. There may be a small pleural scar between the r ight seventh and eighth ribs unchanged. There is an anterior cervical disc fusion at C6-C7. XR/XR chest 1V portable [id number] Impression: Negative chest.
[2023-11-26 09:35] VITALS: BP 105/72; PULSE 94; RESP 16; TEMP 36.8; O2SAT 98; BMI 29.2
[2023-11-26 10:06] LABS: ABG PCO2 34.6 mmHg (35-45); ABG PH Result 7.43 (7.35-7.45); Alveolar-Arterial Oxygen Gradi 4.8 mmHg (5-10); Arterial Blood Gas Hematocrit 42.5 % (42-52); Base Excess ABG -0.8 mmol/L (-2.0-2.0); Blood Gas Allen Test Pos; Blood Gas Operator Identificat MONRO; Blood Gas Sample Site Brachial, right; Blood Gas Sample Type Arterial; Carboxyhemoglobin 4.3 %THgb (0.4-20.1); HGB O2 Sat 91.1 % (95-100); Ionized Calcium Level - ABG 1.1 mmol/L (1.1-1.4); Methemoglobin 0.3 % (0.4-1.5); Oxygen Device ROOM AIR; Oxygen Saturation ABG 95.5; PO2 FiO2 Ratio Arterial Blood 328; Potassium Level - ABG 3.3 mmol/L (3.5-5.0); Total Hemoglobin 13.9 g/dL (14-18)
[2023-11-26 10:32] LABS: Basophils % 0.2 %; Eosinophils # 0.1 10^3/uL (0.0-0.8); Eosinophils % 0.5 %; Hematocrit 41.8 % (37-53); Lymphocytes # 3.5 10^3/uL (0.8-4.8); Lymphocytes % 15.9 %; Mean Corpuscular HGB Conc 32.8 g/dL (30-55); Mean Corpuscular Hemoglobin 25.8 pg (27-33); Mean Corpuscular Volume 78.6 fl (82-101); Mean Platelet Volume 10.9 fL (7.4-10.4); Monocytes # 1.5 10^3/uL (0.2-0.9); Monocytes % 6.7 %; Neutrophils # 15.81 10^3/uL (1.8-7.7); Neutrophils % 72.5 %; Nucleated Red Blood Cells % 0 %; Platelet Count 252 10^3/cmm (157-399); Red Blood Count 5.32 10^6/uL (3.85-5.65); Red Cell Distribution Width 15.4 % (12.1-15.1); White Blood Count 21.79 10^3/uL (3.29-11.43)
[2023-11-26 10:51] LABS: Troponin(5th) Baseline 11 ng/L (0-15)
[2023-11-26 10:54] LABS: Alanine Aminotransferase 16 U/L (0-41); Albumin Level 3.4 g/dL (3.5-5.2); Alkaline Phosphatase 63 U/L (40-130); Anion Gap 15.3 (5-19); Aspartate Amino Transferase 11 U/L (0-40); Blood Urea Nitrogen 11 mg/dL (8-23); C Reactive Protein 74.2 mg/L (0.0-4.9); Carbon Dioxide 22 mmol/L (22-29); Chloride 97 mmol/L (98-107); Creatinine Clr Calc Pharmacy 127.4681; Globulin 2.7 g/dL (1.3-4.6); Glomerular Filtration Rate 137.4 mL/min (90-130); Glucose 232 mg/dL (65-115); Osmolality Calculated 279 mOsm/kg (285-295); Potassium 3.3 mmol/L (3.5-5.1); Sodium 131 mmol/L (136-145); Total Bilirubin 0.5 mg/dL (0.15-1.2); Total Protein 6.1 g/dL (6.6-8.7)
[2023-11-26 11:00] LABS: Procalcitonin 0.11 ng/mL (0-0.5)
--- NOTE | 2023-11-26 11:28 | ECG_ITS ---
[facility] Test Date: 2023-11-26 Pat Name: Coy Gutierrez Department: Room: Gender: Male Clinical Appeals Auditor: : [id number] Requested By: Maria Guadalupe Monsivais Order Number: [id number] Mohini MD: Dwayne Penn M.D. Measurements Intervals [place] Rate: 88 P: -62 PA: 152 QRS: -15 QRSD: 78 T: 43 QT: 357 QTc: 434 Interpretive Statements ECTOPIC ATRIAL RHYTHM MINIMAL ST DEPRESSION [0.025+ mV ST DEPRESSION] ABNORMAL RHYTHM ECG Compared to ECG 08/11/2022 12:28:04 Ectopic atrial rhythm now present ST (T wave) deviation now present Sinus rhythm no longer present Electronically Signed On 11-26-2023 14:12:58 CDT by Dwayne Penn M.D. [id number]
--- NOTE | 2023-11-26 11:43 | XRR_ITS ---
PROCEDURE INFORMATION: Exam: XR Right Tibia and Fibula Exam date and time: 11/26/2023 12:41 PM Age: 58 years old Clinical indication: Condition or disease; Patient HX: Wound on the back of the lower leg; Additional info: Injury TECHNIQUE: Imaging protocol: Radiologic exam of the right tibia and fibula. Views: 2 views. COMPARISON: No relevant prior studies available. FINDINGS: Bones/joints: No acute fracture or dislocation. Bones and joint spaces within normal limits. Soft tissues: No foreign body evident. No evidence of soft tissue emphysema. XR/XR tibia fibula RT 2V [id number] IMPRESSION: No acute pathology.
--- NOTE | 2023-11-26 11:44 | ED_ITS ---
HPI - Weakness 2 General: Chief complaint: Weakness Stated complaint: sob,weak, ams Time Seen by Provider: 11/26/23 11:30 Source: patient Mode of arrival: ambulatory Limitations: no limitations History of Present Illness: 58-year-old male states that he has not felt well this week. States he had injured his right leg with a stick impaled that he states that is been healing but his got COVID last week and even had the same symptoms he never was tested but he has been on remdesivir infusions had 1 2 days ago and yesterday. He states that today has had increasing shortness of breath is felt very fatigued states he feels like he just cannot even walk. Associated symptoms: Reports chills; Denies chest pain, dysuria, fever(s), nausea or vomiting Review of Systems 2 Const: Reports: chills and malaise; Denies: fever(s), body aches or change in appetite Eyes: Denies: blurry vision or eye discomfort ENMT: Denies: throat pain or dental pain Card: Denies: chest pain Resp: Reports: dyspnea GI: Denies: abdominal pain, nausea, vomiting or diarrhea : Denies: dysuria Musc: Denies: neck pain or back pain Skin/Breast: Denies: rash PFSH ED 2 PFSH: Medical History Hypertension Diabetes Acute right-sided weakness Left sided cerebral hemisphere cerebrovascular accident Constipation GERD (gastroesophageal reflux disease) Diabetic acidosis, type II Surgical History Status post laparoscopic cholecystectomy Hx of kyphoplasty Hx of hernia repair x2 Inguinal Hx of knee surgery Right side and possibly left side Hx of colonoscopy with polypectomy total of 3. Last done 12/2018 at [facility] Family History Father Cancer Esephageal cancer Mother Cancer Sister Cancer kidney cancer Social History Smoking and tobacco/nicotine status: former use of tobacco/nicotine Alcohol intake: current Alcohol intake frequency: holidays/special occasions only Physical Exam 2 Const: COMMON NORMALS: no acute distress, patient oriented x3 and healthy appearing HENMT: COMMON NORMALS: normocephalic and atraumatic HEAD & SCALP: n ormocephalic and atraumatic Eye: COMMON NORMALS: Equal, round and reactive pupils present and EOMs intact bilaterally PUPIL: Yes Equal, round and reactive pupils present Neck/C-Spine: COMMON NORMALS: full ROM and supple Chest: COMMONS NORMALS: normal inspection of the chest and normal palpation of entire chest wall Resp: COMMON NORMALS: normal respiratory effort, No retractions, No use of accessory muscles and clear to auscultation bilaterally AUSCULTATION: clear to auscultation bilaterally Cardio: COMMON NORMALS: regular rate, regular rhythm and No murmurs present (Cardio) RATE: regular rate RHYTHM: regular rhythm GI: COMMON NORMALS: Normal to inspection, nondistended, normoactive bowel sounds present, Soft to palpation, non-tender and no masses PALPATION: Yes Soft to palpation Extremity: COMMON NORMALS: normal to inspection and full ROM Neuro: COMMON NORMALS: patient oriented x3, moves all extremities and no focal motor deficits Psych: COMMON NORMALS: mental status grossly normal, Normal thought process present and cooperative THOUGHT PROCESS: Normal thought process present Skin: COMMON NORMALS: no rashes or lesions noted and no wounds GENERAL SKIN EXAM: no rashes or lesions noted Course 2 Vital Signs: Vital signs: Vital Signs Temperature 98.3 F 11/26/23 09:35 Pulse Rate 85 11/26/23 13:14 Respiratory Rate 84 H 11/26/23 12:30 Blood Pressure 119/70 11/26/23 13:14 Pulse Oximetry 97 11/26/23 13:14 Oxygen Delivery Me thod Room Air 11/26/23 13:14 MDM - Weakness Medical Decision Making Patient presents here with generalized weakness he had likely had COVID COVID test here was negative x-ray shows no pneumonia blood works normal he does have a leukocytosis he states it is actually down from his previous states his white count was 27 he is on steroids chronically and states that his white count stays high due to this he is afebrile here no signs of sepsis he stable for discharge follow-up with PCP return if worsening. Medical Records I reviewed the patient's medical records. Lab Data I reviewed the patient's lab results. 11/26/23 10:15 11/26/23 10:15 Radiology Impressions Chest X-Ray 11/26/23 09:28 Impression: Negative chest. Tibia/Fibula X-Ray 11/26/23 11:43 IMPRESSION: No acute pathology. Laboratory Results WBC 21.79 10^3/uL (3.29-11.43) H 11/26/23 10:15 RBC 5.32 10^6/uL (3.85-5.65) 11/26/23 10:15 Hgb 13.70 g/dL (11.27-16.99) 11/26/23 10:15 Hct 41.8 % (37-53) 11/26/23 10:15 MCV 78.6 fl (82-101) L 11/26/23 10:15 MCH 25.8 pg (27-33) L 11/26/23 10:15 MCHC 32.8 g/dL (30-55) 11/26/23 10:15 RDW 15.4 % (12.1-15.1) H 11/26/23 10:15 Plt Count 252 10^3/cmm (157-399) 11/26/23 10:15 MPV 10.9 fL (7.4-10.4) H 11/26/23 10:15 Neut % (Auto) 72.5 % 11/26/23 10:15 Lymph % (Auto) 15.9 % 11/26/23 10:15 [place] % (Auto) 6.7 % 11/26/23 10:15 Eos % (Auto) 0.5 % 11/26/23 10:15 Baso % (Auto) 0.2 % 11/26/23 10:15 Neut # (Auto) 15.81 10^3/uL (1.8-7.7) H 11/26/23 10:15 Lymph # (Auto) 3.5 10^3/uL (0.8-4.8) 11/26/23 10:15 [place] # (Auto) 1.5 10^3/uL (0.2-0.9) H 11/26/23 10:15 Eos # (Auto) 0.1 10^3/uL (0.0-0.8) 11/26/23 10:15 Baso # (Auto) 0.0 10^3/uL (0.0-0.1) 11/26/23 10:15 Nucleated RBC % (auto) 0 % 11/26/23 10:15 Nucleated RBCs # 0.0 /100WBC 11/26/23 10:15 Specimen Type Arterial 11/26/23 09:53 Sample Site Brachial, right 11/26/23 09:53 ABG pH 7.43 (7.35-7.45) 11/26/23 09:53 ABG pCO2 34.6 mmHg (35-45) L 11/26/23 09:53 ABG pO2 69.0 mmHg (80.0-100.0) L 11/26/23 09:53 ABG PO2/FiO2 Ratio 328 11/26/23 09:53 ABG HCO3 23.0 mmol/L (22-26) 11/26/23 09:53 ABG O2 Saturation 95.5 11/26/23 09:53 ABG Base Excess -0.8 mmol/L (-2.0-2.0) 11/26/23 09:53 Phani Test Pos 11/26/23 09:53 A-a O2 Gradient 4.8 mmHg (5-10) L 11/26/23 09:53 Hematocrit 42.5 % (42-52) 11/26/23 09:53 Hgb O2 Saturation 91.1 % (95-100) L 11/26/23 09:53 Carboxyhemoglobin 4.3 %THgb (0.4-20.1) 11/26/23 09:53 Methemoglobin 0.3 % (0.4-1.5) L 11/26/23 09:53 Total Hemoglobin 13.9 g/dL (14-18) L 11/26/23 09:53 Sodium 130.0 mmol/L (131-143) L 11/26/23 09:53 Potassium 3.3 mmol/L (3.5-5.0) L 11/26/23 09:53 Glucose 235.0 mg/dL (70-115) H 11/26/23 09:53 Ionized Calcium 1.1 mmol/L (1.1-1.4) 11/26/23 09:53 O2 Delivery Device Room air 11/26/23 09:53 FiO2 21.0 % 11/26/23 09:53 Cattle Broker ID [place] 11/26/23 09:53 Sodium 131 mmol/L (136-145) L 11/26/23 10:15 Potassium 3.3 mmol/L (3.5-5.1) L 11/26/23 10:15 Chloride 97 mmol/L (98-107) L 11/26/23 10:15 Carbon Dioxide 22 mmol/L (22-29) 11/26/23 10:15 Anion Gap 15.3 (5-19) 11/26/23 10:15 BUN 11 mg/dL (8-23) 11/26/23 10:15 Creatinine 0.6 mg/dL (0.7-1.2) L 11/26/23 10:15 GFR Calculation 137.4 mL/min (90-130) H 11/26/23 10:15 Glucose 232 mg/dL (65-115) H 11/26/23 10:15 Calculated Osmolality 279 mOsm/kg (285-295) L 11/26/23 10:15 Lactic Acid 2.0 mmol/L (0.5-2.2) 11/26/23 10:15 Calcium 8.0 mg/dL (8.5-10.5) L 11/26/23 10:15 Total Bilirubin 0.5 mg/dL (0.15-1.2) 11/26/23 10:15 AST 11 U/L (0-40) 11/26/23 10:15 ALT 16 U/L (0-41) 11/26/23 10:15 Alkaline Phosphatase 63 U/L (40-130) 11/26/23 10:15 Troponin T Baseline 11 ng/L (0-15) 11/26/23 10:15 Troponin T 120 Minute 11.43 ng/L (0-15) 11/26/23 12:20 Delta Troponin T 0.43 ABS# (0-10) 11/26/23 12:20 C-Reactive Protein 74.2 mg/L (0.0-4.9) H 11/26/23 10:15 Total Protein 6.1 g/dL (6.6-8.7) L 11/26/23 10:15 Albumin 3.4 g/dL (3.5-5.2) L 11/26/23 10:15 Globulin 2.7 g/dL (1.3-4.6) 11/26/23 10:15 Procalcitonin 0.11 ng/mL (0-0.5) 11/26/23 10:15 Urine Color Yellow (Yellow) 11/26/23 12:30 Urine Appearance Clear (CLEAR) 11/26/23 12:30 Urine pH 5 (5-7) 11/26/23 12:30 Ur Specific [place] 1.025 (1.005-1.030) 11/26/23 12:30 Urine Protein Trace (Negative) 11/26/23 12:30 Urine Glucose (UA) 4+ (Normal) H 11/26/23 12:30 Urine Ketones 1+ (Negative) H 11/26/23 12:30 Urine Blood Neg (Negative) 11/26/23 12:30 Urine Nitrate Negative (Negative) 11/26/23 12:30 Urine Bilirubin Neg (Negative) 11/26/23 12:30 Urine Urobilinogen 1 mg/dL (Negative) H 11/26/23 12:30 Ur Leukocyte Esterase Negative (Negative) 11/26/23 12:30 Urine RBC None /hpf (0-2) 11/26/23 12:30 Urine WBC 0-4 /hpf (0-5) H 11/26/23 12:30 Ur Squamous Epith Cells Rare /hpf (0-5) 11/26/23 12:30 Amorphous Sediment Not Reportable 11/26/23 12:30 Urine Bacteria None /hpf (NONE) 11/26/23 12:30 Urine Mucus 2+ /hpf 11/26/23 12:30 Coronavirus (PCR) Negative (Negative) 11/26/23 12:20 Influenza A (PCR) Negative (Negative) 11/26/23 12:20 Influenza Type B (PCR) Negative (Negative) 11/26/23 12:20 RSV (PCR) Negative (Negative) 11/26/23 12:20 All radiology interpretation(s) finalized by discharge Discharge Plan Discharge Patient Disposition: Home Clinical Impression: Generalized weakness, URI (upper respiratory infection) Condition: Stable Prescriptions: No Action gabapentin 300 mg capsule 300 mg PO TID Qty: 90 0RF duloxetine [Cymbalta] 30 mg capsule,delayed release(DR/EC) 30 mg PO DAILY Qty: 30 0RF lactulose 10 gram/15 mL (15 mL) solution 15 ml PO TID PRN (Reason: constipation) 30 Days Qty: 315 2RF glycopyrrolate 1 mg tablet 1 mg PO TID PRN (Reason: unknown) albuterol sulfate 90 mcg/actuation HFA aerosol inhaler 1 inh inhalation QID PRN (Reason: Shortness Of Breath) zolpidem 10 mg tablet 10 mg PO DAILY PRN (Reason: Insomnia) Armandi Aerosphere 160-9-4.8 mcg/actuation HFA aerosol inhaler 2 inh inhalation BID ondansetron HCl 4 mg tablet 4 mg PO Q8H PRN (Reason: Nausea) furosemide 20 mg tablet 20 mg PO DAILY insulin aspart U-100 [Novolog PenFill U-100 Insulin] 100 unit/mL cartridge See Rx Instructions .ROUTE .COMPLEX Rx Instructions: Take per sliding scale 3 times daily and at bedtime testosterone cypionate 200 mg/mL oil 80 mg SUBCUT Q14D azelastine 137 mcg (0.1 %) aerosol,spray 1 spray intranasal BID Rx Instructions: administer into each nostril (DME) pen needle, diabetic [TechLITE Pen Needle] 31 gauge x 3/16 needle See Rx Instructions .Route Rx Instructions: As directed amlodipine 10 mg tablet 10 mg PO DAILY PRN (Reason: Blood Pressure) carvedilol 3.125 mg tablet 3.125 mg PO BID PRN (Reason: heartrate) Rx Instructions: must administer with a meal/food ergocalciferol (vitamin D2) 1,250 mcg (50,000 unit) capsule 1,250 mcg PO Q30D atorvastatin 40 mg tablet 40 mg PO DAILY clopidogrel 75 mg tablet 75 mg PO DAILY Hold Instructions: Resume on 11/06/22. aspirin 81 mg tablet,delayed release (DR/EC) 81 mg PO DAILY polyethylene glycol 3350 17 gram/dose powder 17 g PO DAILY PRN (Reason: Constipation) naloxone [Narcan] 4 mg/actuation spray,non-aerosol 4 mg intranasal Q2M PRN (Reason: overdose) Rx Instructions: spray 1 dose into ONE nostril; alternate nostrils w each dose until help arrives prednisone 5 mg Tablet 5 mg PO QAM hydrocortisone [Anusol-HC] 2.5 % cream with perineal applicator 1 applic [place] QID PRN (Reason: Itching) Rx Instructions: may repeat in 10 days insulin glargine [Lantus Solostar U-100 Insulin] 100 unit/mL (3 mL) Insulin Pen 16 unit SUBCUT BEDTIME Qty: 0 fluticasone propion-salmeterol [Advair Diskus] 250-50 mcg/dose Blister With Device 1 inh INHALATION BID olopatadine [Patanase] 0.6 % [place],Non-Aerosol 2 spray INTRANASAL BID Benadryl 50 mg Capsule 50 mg PO Q4H PRN (Reason: allergies) esomeprazole magnesium [address] For Susp In Packet 40 mg PO DAILY cetirizine 10 mg Tablet 10 mg PO DAILY alendronate 70 mg tablet See Rx Instructions .ROUTE .COMPLEX Rx Instructions: TAKE 1 TABLET BY MOUTH EVERY 7 DAYS ON AN EMPTY STOMACH terbinafine HCl 250 mg tablet 250 mg PO DAILY Calcium 600 600 mg calcium (1,500 mg) Tablet 600 mg PO DAILY potassium citrate 10 mEq (1,080 mg) Tablet Extended Release 10 meq PO DAILY guaifenesin 600 mg Tablet Extended Release 12hr 600 mg PO BID hydrocodone-acetaminophen 10-325 mg tablet 1 tab PO Q4H PRN (Reason: pain) Qty: 20 0RF Discharge Orders: Discharge ED (Routine); Ordered 11/26/23 Ordered By: Karen Jones Referrals: Opal Felipe DO [Primary Care Provider] - 4-7 days Discharge Diet: Advance as tolerated Discharge Activity: Resume usual activity Patient Instructions: Upper Respiratory Infection (ED), Weakness (ED) Coding Level of Care Code 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[employer] Fwd Related Data Home Medications Medication Instructions Recorded Confirmed albuterol sulfate 90 mcg/actuation 1 inh inhalation QID PRN Shortness 04/17/22 11/26/23 aerosol inhaler Of Breath amlodipine 10 mg tablet 10 mg PO DAILY PRN Blood Pressure 04/17/22 11/26/23 aspirin 81 mg tablet,delayed 81 mg PO DAILY 04/17/22 11/26/23 release atorvastatin 40 mg tablet 40 mg PO DAILY 04/17/22 11/26/23 azelastine 137 mcg (0.1 %) nasal 1 spray intranasal BID 04/17/22 11/26/23 spray budesonide 160 mcg-glycopyr 9 2 inh inhalation BID 04/17/22 11/26/23 mcg-formot 4.8 mcg/actuation HFA inhaler (Breztri [employer] Gamephere) carvedilol 3.125 mg tablet 3.125 mg PO BID PRN heartrate 04/17/22 11/26/23 clopidogrel 75 mg tablet 75 mg PO DAILY 04/17/22 11/26/23 ergocalciferol (vitamin D2) 1,250 1,250 mcg PO Q30D 04/17/22 11/26/23 mcg (50,000 unit) capsule furosemide 20 mg tablet 20 mg PO DAILY 04/17/22 11/26/23 glycopyrrolate 1 mg tablet 1 mg PO TID PRN unknown 04/17/22 11/26/23 insulin aspart U-100 100 unit/mL See Rx Instructions .Route .COMPLEX 04/17/22 11/26/23 subcutaneous cartridge (Novolog PenFill U-100 Insulin aspart) naloxone 4 mg/actuation nasal 4 mg intranasal Q2M PRN overdose 04/17/22 11/26/23 spray (Narcan) ondansetron HCl 4 mg tablet 4 mg PO Q8H PRN Nausea 04/17/22 11/26/23 pen needle, diabetic 31 gauge x 04/17/22 11/26/23 3/16 (TechLITE Pen Needle) polyethylene glycol 3350 17 17 g PO DAILY PRN Constipation 04/17/22 11/26/23 gram/dose oral powder testosterone cypionate 200 mg/mL 80 mg SUBCUT Q14D 04/17/22 11/26/23 intramuscular oil zolpidem 10 mg tablet 10 mg PO DAILY PRN Insomnia 04/17/22 11/26/23 prednisone 5 mg tablet 5 mg PO QAM 04/29/22 11/26/23 hydrocortisone 2.5 % topical cream 1 applic [place] QID PRN Itching 06/02/22 11/26/23 with perineal applicator (Anusol-HC) insulin glargine 100 unit/mL (3 16 unit SUBCUT BEDTIME ##0 06/02/22 11/26/23 mL) subcutaneous pen (Lantus Solostar U-100 Insulin) fluticasone 250 mcg-salmeterol 50 1 inh inhalation BID 08/11/22 11/26/23 mcg/dose blistr powdr for inhalation (Advair Diskus) olopatadine 0.6 % nasal spray 2 spray intranasal BID 08/11/22 11/26/23 (Patanase) alendronate 70 mg tablet See Rx Instructions .Route .COMPLEX 11/26/23 11/26/23 calcium carbonate (Calcium 600) 600 mg PO DAILY 11/26/23 11/26/23 cetirizine 10 mg tablet 10 mg PO DAILY 11/26/23 11/26/23 diphenhydramine HCl 50 mg capsule 50 mg PO Q4H PRN allergies 11/26/23 11/26/23 esomeprazole magnesium 40 mg 40 mg PO DAILY 11/26/23 11/26/23 granules delayed release for susp guaifenesin 600 mg tablet, 600 mg PO BID 11/26/23 11/26/23 extended release 12 hr potassium citrate 10 mEq (1,080 10 meq PO DAILY 11/26/23 11/26/23 mg) tablet,extended release terbinafine HCl 250 mg tablet 250 mg PO DAILY 11/26/23 11/26/23 Previous Rx's Medication Instructions Recorded lactulose 10 gram/15 mL (15 mL) 15 ml PO TID PRN constipation 1 04/17/22 oral solution month #315 mL duloxetine 30 mg capsule,delayed 30 mg PO DAILY #30 caps 10/22/22 release (Cymbalta) gabapentin 300 mg capsule 300 mg PO TID pain #90 caps 10/22/22 hydrocodone 10 mg-acetaminophen 1 tab PO Q4H PRN pain #20 tabs 11/03/22 325 mg tablet Allergies Allergy/AdvReac Type Severity Reaction Status Date / Time brexpiprazole Allergy Severe ADR-Halluci Verified 01/15/23 10:29 nating doxycycline Allergy Severe ALGY-Difficulty Verified 01/15/23 10:29 Breathing Iodinated Contrast Media Allergy Severe ALGY-Wheezi Verified 01/15/23 10:29 ng Sulfa (Sulfonamide Allergy Severe ALGY-Difficulty Verified 01/15/23 10:29 Antibiotics) Breathing varenicline Allergy Severe ADR-Halluci Verified 01/15/23 10:29 nating hydralazine Allergy Intermediate ADR-Photose Verified 01/15/23 10:29 nsitivity adhesive tape Allergy Mild ALGY-Rash Uncoded 01/15/23 10:29
[2023-11-26] MEDS: sodium chloride 0.9% 1,000 ML 999 ML IV ×2 (12:17→13:12)
[2023-11-26 12:21] VITALS: BP 110/74; PULSE 89; O2SAT 95
[2023-11-26 12:30] VITALS: BP 110/87; RESP 84; O2SAT 92
--- NOTE | 2023-11-26 12:45 | PC.NURSE ---
Addendum entered by Rani Macias RN 11/26/23 13:09: PT HAD IV PLACED AT [facility]. Original Note: PT ARRIVES WITH PERIPHERAL IV IN L AC. PT STATES HE HAD IT PLACED WITH ULTRASOUND YESTERDAY AND WAS SUPPOSED TO RECEIVE ABX INFUSIONS THROUGH IT TODAY PER . PT REQUESTED THE IV TO BE USED HERE FOR ANY MEDS AND FLUIDS. IV IS WRAPPED IN COBAN AND CAPPED; 22G. IV APPEARS PATENT AND INTACT AND FLUSHES GOOD. DR CHAMBERS NOTIFIED AND OKAYED FOR IV TO BE USED.
[2023-11-26 12:46] LABS: Troponin 5 2HR 11.43 ng/L (0-15); Troponin 5 2HR Delta 0.43 ABS# (0-10)
[2023-11-26 13:03] LABS: Covid PCR NEGATIVE (Negative); Influenza A NEGATIVE (Negative); Influenza B NEGATIVE (Negative); Respiratory Syncytial Virus Ce NEGATIVE (Negative)
[2023-11-26 13:14] VITALS: BP 119/70; PULSE 85; O2SAT 97
--- NOTE | 2023-11-26 13:15 | ECG_ITS ---
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 Measurements Intervals [place] Rate: 79 P: 249 WI: 167 QRS: 9 QRSD: 73 T: 39 QT: 350 QTc: 402 Interpretive Statements SINUS RHYTHM MINIMAL ST DEPRESSION [0.025+ mV ST DEPRESSION] Compared to ECG 11/26/2023 11:34:04 Ectopic atrial rhythm no longer present ST (T wave) deviation still present Electronically Signed On 11-26-2023 14:11:32 CDT by Dwayne Penn M.D. [id number]
[2023-11-26 13:19] LABS: Add Urine Microscopic? YES; Bilirubin Urine Neg (Negative); Blood Urine Neg (Negative); Glucose Urine UA 4+ (Normal); Ketones Urine 1+ (Negative); Leukocyte Esterase Urine Negative (Negative); Nitrate Urine Negative (Negative); Protein Urine Trace (Negative); Specific Gravity, Urine 1.025 (1.005-1.030); Urine Appearance Clear (CLEAR); Urine Color Yellow (Yellow); Urobilinogen Urine 1 mg/dL (Negative); pH Urine 5 (5-7)
[2023-11-26 13:23] LABS: Add Urine Culture? No; Mucus Urine 2+ /hpf; Squamous Epithelial Cell Urine RARE /hpf (0-5); WBC Urine 0-4 /hpf (0-5)
[2023-11-26 14:32] VITALS: BP 118/47; PULSE 85; O2SAT 98
== END 2023-11-26 14:30 | disposition home or self-care (01) ==
PROVIDERS: Emergency Medicine; Emergency Provider Emergency Medicine; PCP Family Medicine
DX: R53.1 Weakness (principal); J06.9 Acute upper respiratory infection, unspecified; Z79.02 Long term (current) use of antithrombotics/antiplatelets; Z79.4 Long term (current) use of insulin; Z79.82 Long term (current) use of aspirin; Z87.891 Personal history of nicotine dependence; I10 Essential (primary) hypertension; E11.9 Type 2 diabetes mellitus without complications; Z86.73 Personal history of transient ischemic attack (TIA), and cerebral infarction without residual deficits
CPT/HCPCS: 0241U; 36415; 36600; 71045; 73590; 80051; 80053; 81001; 82330; 82805; 83605; 84145; 84484; 85025; 86140; 87040; 93005; 96360; 96361; 99285; J7030

== ENCOUNTER → 2024-07-26 11:22 | Outpatient (BNVA) | payer MEDICAID, SELFPAY | PROVIDERS: PCP Family Medicine; Visit Provider Surgery | DX: R10.11 Right upper quadrant pain (principal); K21.9 Gastro-esophageal reflux disease without esophagitis | CPT/HCPCS: 99214 ==

== ENCOUNTER 2024-08-04 06:55 | Day surgery (SDC) | payer MEDICAID, SELFPAY ==
[2024-08-04 07:09] VITALS: BP 119/75; PULSE 93; RESP 16; TEMP 36.2; O2SAT 96; BMI 22.2
[2024-08-04] MEDS: sodium chloride 0.9% 1,000 ML 15 ML IV (07:24)
--- NOTE | 2024-08-04 07:27 | ANES.PREANE2 ---
Pre-Anesthetic Assessment Height/Weight: Height 1.68 m Weight 62.596 kg Temp Pulse Resp BP Pulse Ox O2 Del Method 97.2 F L 93 16 119/75 96 Room Air 08/04/24 07:09 08/04/24 07:09 08/04/24 07:09 08/04/24 07:09 08/04/24 07:09 08/04/24 07:09 Preop Diagnosis: GERD Operation Date: 08/04/24 08:20 Proposed Procedures p EGD 10937 R10.9 K21.9(Not Applicable) - Johnnie Snell MD Familial anesthetic complications: None Was Beta [place] taken within 24 hours: Yes Was Clonidine taken within 24 hours: N/A Last intake: Intake Last Liquid Date 08/03/24 Last Liquid Time 22:00 Last Solid Date 08/03/24 Last Solid Time 19:00 Social No alcohol and No tobacco Exam alert, oriented x 3, clear to auscultation bilaterally and regular rate & rhythm Plavix 7 days ago Airway Submandibular: within normal limits Cervical ROM: Other (Limited ROM) Mallampati: Class III Dentition: full Pulmonary Asthma CV/HEM Hypertension None reported Hepatic None reported GI Gastroesophageal Reflux Disease Metabolic Diabetes Mellitus and Hyperlipidemia [facility] Lower Back Pain and Weakness (Right) Neuropsych Cerebrovascular Accident and Deficit (right weak) per. pt. weakness is equal bilateral Anesthetic Plan ASA status: 3 Anesthesia: MAC Risk of > 500 ml blood loss (7ml/kg in children): No Medications/Allergies Home Medications ?Medication ?Instructions ?Recorded ?Confirmed ?Last Taken ?Type albuterol sulfate 90 mcg/actuation 1 inh inhalation QID PRN Shortness 04/17/22 08/04/24 08/03/24 History aerosol inhaler Of Breath amlodipine 10 mg tablet 10 mg PO DAILY PRN Blood Pressure 04/17/22 08/04/24 08/03/24 History aspirin 81 mg tablet,delayed 81 mg PO DAILY 04/17/22 08/04/24 08/03/24 History release atorvastatin 40 mg tablet 40 mg PO DAILY 04/17/22 08/04/24 08/03/24 History azelastine 137 mcg (0.1 %) nasal 1 spray intranasal BID 04/17/22 08/04/24 08/03/24 History spray budesonide 160 mcg-glycopyr 9 2 inh inhalation BID 04/17/22 08/04/24 08/03/24 History mcg-formot 4.8 mcg/actuation HFA inhaler (Breztri [place] [employer]phere) carvedilol 3.125 mg tablet 3.125 mg PO BID PRN heartrate 04/17/22 08/04/24 06/08/22 History clopidogrel 75 mg tablet 75 mg PO DAILY 04/17/22 08/04/24 07/27/24 History Held on 11/03/22. Instructions: Resume on 11/06/22. furosemide 20 mg tablet 20 mg PO DAILY 04/17/22 08/04/24 08/03/24 History glycopyrrolate 1 mg tablet 1 mg PO TID PRN unknown 04/17/22 08/04/24 11/26/23 History insulin aspart U-100 100 unit/mL See Rx Instructions .Route .COMPLEX 04/17/22 08/04/24 08/03/24 History subcutaneous cartridge (Novolog PenFill U-100 Insulin aspart) lactulose 10 gram/15 mL (15 mL) 15 ml PO TID PRN constipation 1 04/17/22 08/04/24 Unknown Rx oral solution month #315 mL naloxone 4 mg/actuation nasal 4 mg intranasal Q2M PRN overdose 04/17/22 08/04/24 Unknown History spray (Narcan) ondansetron HCl 4 mg tablet 4 mg PO Q8H PRN Nausea 04/17/22 08/04/24 04/30/22 History pen needle, diabetic 31 gauge x 04/17/22 08/04/24 Unknown History 3/16 (TechLITE Pen Needle) polyethylene glycol 3350 17 17 g PO DAILY PRN Constipation 04/17/22 08/04/24 04/30/22 History gram/dose oral powder testosterone cypionate 200 mg/mL 80 mg SUBCUT Q14D 04/17/22 08/04/24 07/23/24 History intramuscular oil zolpidem 10 mg tablet 10 mg PO DAILY PRN Insomnia 04/17/22 08/04/24 08/03/24 History prednisone 5 mg tablet 5 mg PO QAM 04/29/22 08/04/24 08/03/24 History insulin glargine 100 unit/mL (3 16 unit SUBCUT BEDTIME ##0 06/02/22 08/04/24 08/01/24 History mL) subcutaneous pen (Lantus Solostar U-100 Insulin) fluticasone 250 mcg-salmeterol 50 1 inh inhalation BID 08/11/22 08/04/24 08/03/24 History mcg/dose blistr powdr for inhalation (Advair Diskus) duloxetine 30 mg capsule,delayed 30 mg PO DAILY #30 caps 10/22/22 08/04/24 08/03/24 Rx release (Cymbalta) gabapentin 300 mg capsule 300 mg PO TID pain #90 caps 10/22/22 08/04/24 08/03/24 Rx hydrocodone 10 mg-acetaminophen 1 tab PO Q4H PRN pain #20 tabs 11/03/22 08/04/24 11/26/23 Rx 325 mg tablet cetirizine 10 mg tablet 10 mg PO DAILY 11/26/23 08/04/24 08/03/24 History diphenhydramine HCl 50 mg capsule 50 mg PO Q4H PRN allergies 11/26/23 08/04/24 Unknown History esomeprazole magnesium 40 mg 40 mg PO DAILY 11/26/23 08/04/24 08/03/24 History granules delayed release for susp (Nexium Packet) guaifenesin 600 mg tablet, 600 mg PO BID 11/26/23 08/04/24 08/03/24 History extended release 12 hr (Mucinex) Allergies Allergy/AdvReac Type Severity Reaction Status Date / Time brexpiprazole Allergy Severe ADR-Halluci Verified 08/04/24 07:06 nating doxycycline Allergy Severe ALGY-Difficulty Verified 08/04/24 07:06 Breathing Iodinated Contrast Media Allergy Severe ALGY-Wheezi Verified 08/04/24 07:06 ng Sulfa (Sulfonamide Allergy Severe ALGY-Difficulty Verified 08/04/24 07:06 Antibiotics) Breathing varenicline Allergy Severe ADR-Halluci Verified 08/04/24 07:06 nating hydralazine Allergy Intermediate ADR-Photose Verified 08/04/24 07:06 nsitivity adhesive tape Allergy Mild ALGY-Rash Verified 08/04/24 07:06 Current Medications Generic Name Dose Route Start Last Admin Trade Name Freq PRN Reason Stop Dose Admin Sodium Chloride 1,000 mls @ 15 mls/hr 08/04/24 06:58 08/04/24 07:24 Sodium Chloride 0.9% IV 08/05/24 06:57 15 mls/hr .Q24H PRN Administration COLONOSCOPY FLUIDS PFSH Anesthesia Medical History Hypertension Diabetes Acute right-sided weakness Left sided cerebral hemisphere cerebrovascular accident Constipation GERD (gastroesophageal reflux disease) Diabetic acidosis, type II Surgical History Status post laparoscopic cholecystectomy Hx of kyphoplasty Hx of hernia repair x2 Inguinal Hx of knee surgery Right side and possibly left side Hx of colonoscopy with polypectomy total of 3. Last done 12/2018 at [facility] Family History Father Cancer Esephageal cancer Mother Cancer Sister Cancer kidney cancer Social History Smoking and tobacco/nicotine status: never used tobacco/nicotine Alcohol intake: current Alcohol intake frequency: holidays/special occasions only Data Anesthesia Cardiac Studies: Echocardiogram 08/11/22 Cardiac Event Monitor 08/26/22
--- NOTE | 2024-08-04 07:34 | W.PM.OPSUD ---
Surgery/Procedure H&P Update DATE OF PROCEDURE: August 04, 2024 DATE H&P PERFORMED: 07/26/24 H&P UPDATE INFORMATION: I have reviewed H&P completed within last 30 days, I have examined patient prior to procedure, No changes to prior documentation, Changes to prior documentation as noted here and Risks and benefits of the procedure reviewed PREOP DIAGNOSIS: GERD PLANNED PROCEDURE: Operation Date: 08/04/24 08:20 Proposed Procedures p EGD 58078 R10.9 K21.9(Not Applicable) - Johnnie Snell MD
[2024-08-04 08:30] LABS: Glucose Point of Care 81 mg/dL (70-110)
[2024-08-04 08:31] VITALS: BP 81/51; PULSE 83; RESP 18; TEMP 36.6; O2SAT 97
[2024-08-04 08:40] VITALS: BP 101/67; PULSE 86; RESP 18; TEMP 36.7; O2SAT 95
--- NOTE | 2024-08-04 08:55 | ANE.PACU2 ---
Inpatient post-anesthesia follow up: Airway intact: Yes Vital signs: Temperature 98.1 F Pulse Rate 86 Respiratory Rate 18 Blood Pressure 101/67 Pulse Oximetry 95 Oxygen Delivery Me thod Room Air Oxygen Flow Rate Fraction of Inspir ed Oxygen Hydration adequate: Yes Nausea and vomiting: No Pain level: 1 Mental status: Baseline
== END 2024-08-04 09:00 | disposition home or self-care (01) ==
PROVIDERS: PCP Family Medicine; Visit Provider Surgery
PROC: 0DJ08ZZ Inspection of Upper Intestinal Tract, Via Natural or Artificial Opening Endoscopic (ICD-10-PCS; principal; 2024-08-04 08:20)
DX: K29.50 Unspecified chronic gastritis without bleeding (principal); I10 Essential (primary) hypertension; J45.909 Unspecified asthma, uncomplicated; K21.9 Gastro-esophageal reflux disease without esophagitis; E11.9 Type 2 diabetes mellitus without complications; E78.5 Hyperlipidemia, unspecified; Z86.73 Personal history of transient ischemic attack (TIA), and cerebral infarction without residual deficits; Z79.82 Long term (current) use of aspirin; Z79.899 Other long term (current) drug therapy; Z79.02 Long term (current) use of antithrombotics/antiplatelets; Z79.4 Long term (current) use of insulin; Z88.0 Allergy status to penicillin; Z88.8 Allergy status to other drugs, medicaments and biological substances; Z91.041 Radiographic dye allergy status; Z91.09 Other allergy status, other than to drugs and biological substances; Z88.2 Allergy status to sulfonamides; Z80.0 Family history of malignant neoplasm of digestive organs; Z86.0100 Personal history of colon polyps, unspecified; Z90.49 Acquired absence of other specified parts of digestive tract
CPT/HCPCS: 36416; 43239; 82962; 88305; 88342; J2704; J7030; J9999

== ENCOUNTER → 2024-08-24 14:18 | Outpatient (BNVA) | payer MEDICAID, SELFPAY | PROVIDERS: PCP Family Medicine; Visit Provider Surgery | DX: Z09 Encounter for follow-up examination after completed treatment for conditions other than malignant neoplasm (principal) | CPT/HCPCS: 99213 ==